=== PATIENT | female | born 1975 | race Caucasian/White ===

== ENCOUNTER 2022-05-17 11:10 | Emergency (ER) | payer MEDICAID, SELFPAY ==
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
[2022-05-17 11:43] VITALS: BP 143/92; PULSE 128; TEMP 36.6; O2SAT 100; BMI 18.4
--- NOTE | 2022-05-17 11:49 | CTR_ITS ---
PROCEDURE INFORMATION: Exam: CT Head Without Contrast Exam date and time: 05/17/2022 1:21 PM Age: 47 years old Clinical indication: Injury or trauma; Other: Seizure; Other: PT denies trauma TECHNIQUE: Imaging protocol: Computed tomography of the head without contrast. Axial, coronal and sagittal reformatted images were created and reviewed. Radiation optimization: All CT scans at this facility use at least one of these dose optimization techniques: automated exposure control; mA and/or kV adjustment per patient size (includes targeted exams where dose is matched to clinical indication); or iterative reconstruction. REPORTING DATA: Count of CT and Cardiac NM exams in prior 12 months: This patient has received 0 known CTs and 0 known cardiac nuclear medicine studies in the 12 months prior to the current study. COMPARISON: No relevant prior studies available. RADIATION DOSE METRICS: Total DLP (mGy-cm): 967.18 FINDINGS: Brain: No CT evidence of acute intracranial hemorrhage or acute territorial infarction. No significant mass effect or midline shift. Basal cisterns patent. Cerebral ventricles: Normal in size and configuration. Paranasal sinuses: Unremarkable. No fluid levels. Mastoid air cells: Grossly unremarkable. Bones/joints: No acute osseous abnormality. Soft tissues: Grossly unremarkable. CT/CT head wo con* [id number] IMPRESSION: No CT evidence of acute intracranial pathology.
--- NOTE | 2022-05-17 12:12 | ECG_ITS ---
[facility] Test Date: 2022-05-17 Pat Name: Yolanda Wray Department: Room: Gender: Female Radio Station Operator: : 1975 Requested By: Johnnie Do Order Number: [id number] Twin MD: Wilfred Lopez Measurements Intervals [place] Rate: 118 P: 146 NC: 134 QRS: 135 QRSD: 74 T: 122 QT: 304 QTc: 426 Interpretive Statements SINUS TACHYCARDIA ARM LEADS REVERSED [INVERTED P AND QRS IN I] ABNORMAL RHYTHM ECG No previous ECG available for comparison Electronically Signed On 05-17-2022 18:57:52 CDT by Wilfred Lopez [id number]
[2022-05-17] MEDS: sodium chloride 0.9% 1,000 ML 999 ML IV (12:16)
--- NOTE | 2022-05-17 12:18 | PC.PHAR ---
ext med history shows ambien 5mg hs prn filled 04/30/22 10d/s pt states she doesnt have this medication any more-
[2022-05-17 12:21] VITALS: BP 130/72; PULSE 123; RESP 16; O2SAT 100
[2022-05-17 12:30] LABS: Add Urine Microscopic? NO; Charge for UA Resulting for Rev
[2022-05-17 12:31] LABS: Basophils # 0.1 10^3/uL (0.0-0.1); Basophils % 0.5 %; Eosinophils % 0.1 %; Hematocrit 49.2 % (37.0-47.0); Hemoglobin 16.4 g/dL (11.5-15.3); Lymphocytes # 1.3 10^3/uL (0.8-4.8); Mean Corpuscular HGB Conc 33.3 g/dL (30.0-36.0); Mean Corpuscular Volume 89.9 fl (81-99); Mean Platelet Volume 11.3 fL (7.4-10.4); Monocytes # 0.5 10^3/uL (0.2-0.9); Monocytes % 4.9 %; Neutrophils # 9.04 10^3/uL (1.8-7.7); Neutrophils % 81.7 %; Nucleated Red Blood Cells % 0 %; Platelet Count 200 10^3/cmm (130-400); Red Blood Count 5.47 10^6/uL (4.1-5.3); Red Cell Distribution Width 12.4 % (12.1-15.1); White Blood Count 11.1 10^3/uL (4.0-10.0)
[2022-05-17 12:55] LABS: Bilirubin Urine Neg (Negative); Blood Urine Neg (Negative); Glucose Urine UA Norm (Normal); Ketones Urine Negative (Negative); Leukocyte Esterase Urine Negative (Negative); Nitrate Urine Negative (Negative); Protein Urine Neg (Negative); Specific Gravity, Urine 1.015 (1.005-1.030); Urine Appearance Clear (CLEAR); Urine Color Light yellow (Yellow); Urobilinogen Urine Norm (Negative); pH Urine 5 (5-7)
[2022-05-17 13:01] LABS: HCG, Serum Qual Negative (Negative)
[2022-05-17 13:17] LABS: Alanine Aminotransferase 17 U/L (0-33); Alkaline Phosphatase 74 U/L (35-105); Blood Urea Nitrogen 6 mg/dL (6-20); Calcium 9.4 mg/dL (8.5-10.5); Carbon Dioxide 20 mmol/L (22-29); Chloride 98 mmol/L (98-107); Creatinine Clr Calc Pharmacy 111.6594; Glomerular Filtration Rate 132.8 mL/min (90-130); Glucose 103 mg/dL (65-115); Osmolality Calculated 272 mOsm/kg (285-295); Sodium 132 mmol/L (136-145)
[2022-05-17 13:20] LABS: Acetaminophen < 5.0 ug/mL (10-30); Alcohol Level < 10 mg/dL (0-10); Aspartate Amino Transferase 32 U/L (0-32); Salicylate < 0.3 mg/dL (3-10)
[2022-05-17 13:55] VITALS: BP 116/87; PULSE 102; RESP 16; O2SAT 98
[2022-05-17] MEDS: acetaminophen 325 mg Tablet 650 MG PO (14:12)
[2022-05-17] MEDS: CLONazepam 1 mg Tablet PO (14:12)
[2022-05-17 14:15] VITALS: BP 116/87; PULSE 111; RESP 16; O2SAT 100
--- NOTE | 2022-05-18 11:20 | DCPLANNER ---
Addendum entered by Anastasia Sosa 05/29/22 15:01: manager of change received the following message from the neurology clinic regarding follow up appointment: pt returned call stating she did not want to be seen with neuro :) Addendum entered by Anastasia Sosa 05/22/22 08:23: Patient has a follow up appointment scheduled for Wednesday, July 01, 2022 at 11:[address] Casillas at neurology. Original Note: manager of change had message to schedule a follow up appointment for patient with neurology. manager of change sent patients information to the front office staff at neurology. Patients information will be printed and reviewed. Clinic will call patient with appointment information.
--- NOTE | 2022-05-27 10:08 | DCPLANNER ---
social media project manager called patient due to no primary care physician - no answer at this time
== END 2022-05-17 14:45 | disposition home or self-care (01) ==
PROVIDERS: Emergency Provider Emergency Medicine
DX: R56.9 Unspecified convulsions (principal); Z76.0 Encounter for issue of repeat prescription
CPT/HCPCS: 70450; 80053; 80307; 81003; 84443; 84703; 85025; 93005; 96360; 99285; J7030

== ENCOUNTER 2022-07-25 09:32 | Emergency (ER) | payer MEDICAID, SELFPAY ==
[2022-07-25 09:34] VITALS: BP 129/74; PULSE 117; RESP 20; O2SAT 96
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
--- NOTE | 2022-07-25 09:53 | ECG_ITS ---
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 Measurements Intervals [place] Rate: 95 P: 73 SD: 129 QRS: 74 QRSD: 84 T: 72 QT: 338 QTc: 425 Interpretive Statements SINUS RHYTHM WITH SINUS ARRHYTHMIA POSSIBLE LEFT ATRIAL ENLARGEMENT [-0.1mV P-WAVE IN V1/V2] Compared to ECG 05/17/2022 12:12:00 Sinus tachycardia no longer present Electronically Signed On 07-25-2022 14:50:06 CDT by Neisha Broussard M.D. [email or web address]
[2022-07-25 10:15] LABS: Basophils % 0.4 %; Eosinophils # 0.1 10^3/uL (0.0-0.8); Eosinophils % 0.7 %; Hematocrit 40.4 % (37.0-47.0); Hemoglobin 13.2 g/dL (11.5-15.3); Lymphocytes # 2.3 10^3/uL (0.8-4.8); Lymphocytes % 23.8 %; Mean Corpuscular HGB Conc 32.7 g/dL (30.0-36.0); Mean Corpuscular Hemoglobin 29.1 pg (28.0-34.0); Mean Platelet Volume 9.6 fL (7.4-10.4); Monocytes # 0.4 10^3/uL (0.2-0.9); Monocytes % 3.7 %; Neutrophils # 6.91 10^3/uL (1.8-7.7); Neutrophils % 71.1 %; Nucleated Red Blood Cells % 0 %; Platelet Count 339 10^3/cmm (130-400); Red Blood Count 4.54 10^6/uL (4.1-5.3); Red Cell Distribution Width 12.4 % (12.1-15.1); White Blood Count 9.7 10^3/uL (4.0-10.0)
[2022-07-25 10:31] LABS: Alanine Aminotransferase 13 U/L (0-33); Albumin Level 4.7 g/dL (3.5-5.2); Alcohol Level 74 mg/dL (0-10); Alkaline Phosphatase 77 U/L (35-105); Blood Urea Nitrogen 11 mg/dL (6-20); Calcium 9.4 mg/dL (8.5-10.5); Carbon Dioxide 23 mmol/L (22-29); Chloride 102 mmol/L (98-107); Globulin 2.9 g/dL (1.3-4.6); Glomerular Filtration Rate 171.8 mL/min (90-130); Glucose 75 mg/dL (65-115); Osmolality Calculated 282 mOsm/kg (285-295); Sodium 137 mmol/L (136-145); Total Bilirubin 0.4 mg/dL (0.15-1.2); Total Protein 7.6 g/dL (6.6-8.7)
[2022-07-25 10:45] LABS: Acetaminophen < 5.0 ug/mL (10-30); Salicylate < 0.3 mg/dL (3-10)
[2022-07-25 10:46] LABS: Anion Gap 16.4 (5-19); Aspartate Amino Transferase 23 U/L (0-32); Potassium 4.4 mmol/L (3.5-5.1)
[2022-07-25] MEDS: LORazepam 2 mg Tablet PO (10:49)
[2022-07-25 11:54] VITALS: BP 135/91; PULSE 108; RESP 16; O2SAT 99
--- NOTE | 2022-07-27 09:07 | DCPLANNER ---
Addendum entered by Anastasia Sosa 07/30/22 10:17: city maintenance manager received the following message from Kayla at [facility] regarding referral to [facility]. Attempted contact on 07/27/22 and 07/30/22. Left a voicemail with contact info. Original Note: city maintenance manager had message to schedule a follow up appointment for patient with C. city maintenance manager sent patients to the scheduling staff at [facility] and to Kayla Acevedo emergency medical service coordinator. Patients information will be printed and reviewed. Clinic will call patient with appointment information.
== END 2022-07-25 11:57 | disposition home or self-care (01) ==
PROVIDERS: Emergency Provider Family Medicine; PCP Family Medicine
DX: F41.9 Anxiety disorder, unspecified (principal)
CPT/HCPCS: 36415; 80053; 80307; 85025; 93005; 99284

== ENCOUNTER 2023-07-07 22:07 | Emergency (ER) | payer SELFPAY ==
[2023-07-07 22:14] VITALS: BP 112/58; PULSE 83; RESP 14; TEMP 36.6; O2SAT 97
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
== END 2023-07-07 23:16 | disposition home or self-care (01) ==
PROVIDERS: Emergency Provider Nurse Practitioner Family; PCP Family Medicine
DX: S63.657A Sprain of metacarpophalangeal joint of left little finger, initial encounter (principal); S02.32XA Fracture of orbital floor, left side, initial encounter for closed fracture; Y04.2XXA Assault by strike against or bumped into by another person, initial encounter
CPT/HCPCS: 70480; 73130; 99284

== ENCOUNTER 2024-01-22 16:36 | Emergency (ER) | payer MEDICAID, SELFPAY ==
[2024-01-22 16:43] VITALS: BP 131/82; PULSE 120; RESP 16; TEMP 36.9; O2SAT 99
--- NOTE | 2024-01-22 17:00 | W.ED.GENADLT ---
HPI - General Adult General: Chief complaint: General Medical Stated complaint: withdrawl Time Seen by Provider: 01/22/24 16:55 Source: patient Mode of arrival: ambulatory Limitations: no limitations History of Present Illness: 49-year-old female states that she was unable to fill her prescription for Klonopin out and states has been having some anxiety. She denies any SI HI she denies any vomiting or diarrhea she is well-appearing here she states she has been drinking some alcohol today. Associated symptoms: Deny chest pain, dyspnea, headache(s), nausea, rash or vomiting Related Data Home Medications Medication Instructions Recorded Confirmed ibuprofen 800 mg tablet 800 mg PO TID PRN Pain 05/17/22 07/25/22 buspirone 15 mg tablet 15 mg PO BID 07/25/22 09/11/22 cephalexin 250 mg capsule 750 mg PO BID 07/25/22 07/25/22 Previous Rx's Medication Instructions Recorded clonazepam 0.5 mg tablet 0.5 mg PO DAILY #5 tabs 07/25/22 clonazepam 0.5 mg tablet 0.5 mg PO DAILY #14 tabs 01/22/24 Allergies Allergy/AdvReac Type Severity Reaction Status Date / Time amitriptyline Allergy ADR-Numbnes Verified 01/20/24 10:55 s morphine Allergy ADR-Vomitin Verified 01/20/24 10:55 g Review of Systems Const: Denies: fever(s), chills, body aches or change in appetite ENMT: Denies: throat pain or dental pain Card: Denies: chest pain Resp: Denies: dyspnea GI: Denies: abdominal pain, nausea, vomiting or diarrhea Musc: Denies: neck pain or back pain Skin/Breast: Denies: rash Neuro: Denies: headache(s) Psych: Reports: anxiety PFSH ED PFSH: Medical History Anxiety Seizure Social History Substance/Drug Use: current Physical Exam Const: COMMON NORMALS: no acute distress, patient oriented x3 and healthy appearing HENMT: COMMON NORMALS: normocephalic and atraumatic HEAD & SCALP: normocephalic and atraumatic Eye: COMMON NORMALS: conjunctivae normal CONJUNCTIVA: Yes conjunctivae normal Neck/C-Spine: COMMON NORMALS: full ROM and supple Chest: COMMONS NORMALS: normal inspection of the chest Resp: COMMON NORMALS: normal respiratory effort Extremity: COMMON NORMALS: normal to inspection and full ROM Neuro: COMMON NORMALS: patient oriented x3, moves all extremities and no focal motor deficits Psych: COMMON NORMALS: mental status grossly normal, Normal thought process present and cooperative THOUGHT PROCESS: Normal thought process present Skin: COMMON NORMALS: no rashes or lesions noted and no wounds GENERAL SKIN EXAM: no rashes or lesions noted Course Vital Signs: Vital signs: Vital Signs Temperature 98.4 F 01/22/24 16:43 Pulse Rate 120 H 01/22/24 16:43 Respiratory Rate 16 01/22/24 16:43 Blood Pressure 131/82 01/22/24 16:43 Pulse Oximetry 99 01/22/24 16:43 Oxygen Delivery Me thod Room Air 01/22/24 16:43 MDM - General Adult Medical Decision Making Patient presents here with anxiety wanting a refill for Klonopin I informed her I can give her 1 weeks worth of her Klonopin will not be able to refill it again she has to follow-up with her PCP she understands agrees to plan. She is not suicidal or homicidal. Medical Records I reviewed the patient's medical records. No radiology studies performed this visit Discharge Plan Discharge Patient Disposition: Home Clinical Impression: Anxiety Condition: Stable Prescriptions: Continued clonazepam 0.5 mg tablet 0.5 mg PO DAILY Qty: 14 0RF No Action ibuprofen 800 mg tablet 800 mg PO TID PRN (Reason: Pain) cephalexin 250 mg capsule 750 mg PO BID buspirone 15 mg tablet 15 mg PO BID clonazepam 0.5 mg tablet 0.5 mg PO DAILY Qty: 5 0RF Discharge Orders: Discharge ED (Routine); Ordered 01/22/24 Ordered By: Claribel Gipson Referrals: Beau Rai MD [Primary Care Provider] - 4-7 days Discharge Diet: Advance as tolerated Discharge Activity: Resume usual activity Patient Instructions: Anxiety (ED) Coding Level of Care Code ED Windshield Installer for Mary Musa
== END 2024-01-22 17:26 | disposition home or self-care (01) ==
PROVIDERS: Emergency Provider Emergency Medicine; PCP Family Medicine
DX: F41.9 Anxiety disorder, unspecified (principal)
CPT/HCPCS: 99281

== ENCOUNTER 2024-03-02 16:33 | Emergency (ER) | payer MEDICAID, SELFPAY ==
[2024-03-02 16:38] VITALS: BP 122/87; PULSE 111; RESP 18; TEMP 36.6; O2SAT 97; BMI 19.5
--- NOTE | 2024-03-02 16:47 | XRR_ITS ---
PROCEDURE INFORMATION: Exam: XR Chest Exam date and time: 03/02/2024 4:52 PM Age: 49 years old Clinical indication: Cough; Additional info: Congestion/productive cough TECHNIQUE: Imaging protocol: Radiologic exam of the chest. Views: 1 view. COMPARISON: No relevant prior studies available. FINDINGS: Lungs: Unremarkable. No consolidation. Pleural spaces: Unremarkable. No pleural effusion. No pneumothorax. Heart/Mediastinum: Unremarkable. No cardiomegaly. Bones/joints: Unremarkable. XR/XR chest 1V portable [id number] IMPRESSION: No acute findings.
--- NOTE | 2024-03-02 16:48 | W.ED.URI ---
HPI - URI/Sore Throat General: Chief Complaint: Upper Respiratory Infection Stated Complaint: conjestion Time Seen by Provider: 03/02/24 16:41 Source: patient Mode of arrival: ambulatory Limitations: no limitations History of Present Illness: Patient is a 49-year-old female presents to ED today with complaint of chest congestion and a productive cough over the past 2 to 3 weeks. Patient states she lives in the [facility] and several of the other residents have been ill. She is an everyday smoker. She states she is coughing up yellow to green phlegm. She has some ear pain/pressure. She has not ran any fevers. She is not complaining of chest pain, hemoptysis, orthopnea, PND, leg swelling/weight gain, no recent surgeries, no risk factors for PE. She arrives tachycardic. Looking at previous documentation of vital signs, this has been present since back in May 2022 which is as far back as a goes. Patient states she is chronically anxious. MD elicited complaint: cough Onset (ago): week(s) Consistency: constant Severity: moderate Description of mucous: yellow and green Able to tolerate fluids by mouth: Yes Exacerbating factors: nothing Relieving factors: nothing Context: sick contacts Associated symptoms: Reports ear or mastoid pain; Deny abdominal pain, chills, chest pain, diarrhea, fever(s), headache(s), nasal congestion, nausea, sinus pain or vomiting Treatments prior to arrival: none Related Data Home Medications Medication Instructions Recorded Confirmed ibuprofen 800 mg tablet 800 mg PO TID PRN Pain 05/17/22 07/25/22 buspirone 15 mg tablet 15 mg PO BID 07/25/22 09/11/22 Previous Rx's Medication Instructions Recorded clonazepam 0.5 mg tablet 0.5 mg PO DAILY #5 tabs 07/25/22 clonazepam 0.5 mg tablet 0.5 mg PO DAILY #14 tabs 01/22/24 amoxicillin 875 mg-potassium 1 tab PO BID #14 tabs 03/02/24 clavulanate 125 mg tablet azithromycin 250 mg tablet See Rx Instructions PO .COMPLEX #6 03/02/24 tabs Allergies Allergy/AdvReac Type Severity Reaction Status Date / Time amitriptyline Allergy ADR-Numbnes Verified 01/20/24 10:55 s morphine Allergy ADR-Vomitin Verified 12/05/24 10:55 g Review of Systems Const: Denies: fever(s), chills, body aches, fatigue or malaise Eyes: Denies: change in vision, blurry vision, photophobia, eye discomfort or eye discharge ENMT: Reports: ear or mastoid pain; Denies: throat pain, enlarged tonsils, odynophagia, swelling of lips/tongue, oral sores, ear discharge, nasal discharge, nasal congestion, post nasal drip or sinus pain Card: Denies: chest pain, palpitations, irregular heart rhythm, edema, swelling of feet/ankles, lightheadedness, syncope, pre-syncope, dyspnea on exertion, orthopnea, leg pain with exertion or acrocyanosis Resp: Reports: productive cough, change in phlegm color and chest congestion; Denies: dyspnea, non-productive cough, wheezing, stridor, pain on inspiration or hemoptysis GI: Denies: abdominal pain, nausea, vomiting or diarrhea Musc: Denies: neck pain, back pain, extremity pain, joint pain or joint swelling Skin/Breast: Denies: rash Neuro: Denies: headache(s) or dizziness All/Imm: Denies: facial swelling or seasonal rhinorrhea PFSH ED PFSH: Medical History Psychiatric care Anxiety Seizure Social History Substance/Drug Use: current Physical Exam Const: COMMON NORMALS: no acute distress, average body habitus, patient oriented x3, no limitations, healthy appearing, alert and well nourished GENERAL APPEARANCE: cooperative ORIENTATION/CONSCIOUSNESS: Yes awake, Yes oriented to person, Yes oriented to place and Yes oriented to time HENMT: COMMON NORMALS: normocephalic, atraumatic, hearing grossly normal bilaterally, external ears normal, EAC's normal, TM's normal bilaterally, Normal external nose present, Normal nasal mucous membranes and turbinates present, moist oral mucous membranes and oropharynx normal HEAD & SCALP: normal to inspection, normocephalic and atraumatic FACE & SINUS: normal facial exam and sinuses nontender NOSE: Normal external nose present and Normal nasal mucous membranes and turbinates present EXTERNAL EAR: Yes external ears normal EXTERNAL AUDITORY CANAL: EAC's normal TYMPANIC MEMBRANE: TM's normal bilaterally MOUTH: Normal oral and palatal mucosa present and lip normal THROAT: posterior oropharynx normal, tonsils normal and uvula midline Eye: COMMON NORMALS: Equal, round and reactive pupils present, EOMs intact bilaterally and conjunctivae normal CONJUNCTIVA: Yes conjunctivae normal PUPIL: Yes Equal, round and reactive pupils present Neck/C-Spine: COMMON NORMALS: no lymphadenopathy Resp: COMMON NORMALS: normal respiratory effort and clear to auscultation bilaterally AUSCULTATION: clear to auscultation bilaterally Cardio: COMMON NORMALS: regular rhythm RATE: tachycardic RHYTHM: regular rhythm Extremity: COMMON NORMALS: no clubbing, cyanosis or edema, no calf tenderness and no pedal edema GENERAL: Yes normal exam except as noted Neuro: COMMON NORMALS: patient oriented x3 SENSORIUM/ORIENTATION: Yes alert, Yes oriented to person, Yes oriented to place and Yes oriented to time Skin: COMMON NORMALS: no rashes or lesions noted GENERAL SKIN EXAM: no rashes or lesions noted Course Vital Signs: Vital signs: Vital Signs Temperature 97.9 F 03/02/24 16:38 Pulse Rate 111 H 03/02/24 16:38 Respiratory Rate 18 03/02/24 16:38 Blood Pressure 122/87 03/02/24 16:38 Pulse Oximetry 97 03/02/24 16:38 Oxygen Delivery Me thod Room Air 03/02/24 16:38 MDM - URI/Sore Throat Medical Decision Making Patient here with a productive cough over the past 3 weeks. She clinically appears in no acute distress. Her tachycardia seems chronic when comparing to previous vital signs. CXR somewhat difficult to interpret as she has very dense breast tissue. She does seem to have some peribronchial cuffing present and possible right hilar pneumonia-personal interpretation. Will cover for atypical and typical bugs with augmentin/azithromycin. Return precautions discussed. Otherwise she can follow-up with her primary care provider. Differential Diagnosis Likely upper respiratory infection, viral infection and bronchitis Medical Records I reviewed the patient's medical records. Lab Data Radiology Impressions Chest X-Ray 03/02/24 16:47 IMPRESSION: No acute findings. XR interpretation done by ED provider, pending radiology final review Discharge Plan Discharge Patient Disposition: Home Clinical Impression: Pneumonia Qualifiers: Pneumonia type: due to unspecified organism Laterality: unspecified laterality Lung location: unspecified part of lung Qualified Code(s): J18.9 - Pneumonia, unspecified organism Condition: Stable Prescriptions: New azithromycin 250 mg tablet See Rx Instructions .ROUTE .COMPLEX Qty: 6 0RF Rx Instructions: take 500 mg today (day 1), then 250 mg for 4 days (days 2-5) amoxicillin-pot clavulanate 875-125 mg tablet 1 tab PO BID Qty: 14 0RF Discontinued cephalexin 250 mg capsule 750 mg PO BID No Action ibuprofen 800 mg tablet 800 mg PO TID PRN (Reason: Pain) buspirone 15 mg tablet 15 mg PO BID clonazepam 0.5 mg tablet 0.5 mg PO DAILY Qty: 5 0RF clonazepam 0.5 mg tablet 0.5 mg PO DAILY Qty: 14 0RF Discharge Orders: Discharge ED (Routine); Ordered 03/02/24 Ordered By: Khloe Duvall Referrals: Beau Rai MD [Primary Care Provider] - Patient Instructions: Bacterial Pneumonia (DC), Pneumonia (ED) Activity Restrictions/Additional Instructions: As we discussed, please follow-up with your primary care provider in a week or so if symptoms do not seem to be improving. You need to return to the emergency department for significant shortness of breath, difficulty breathing, chest pain, generally feeling worse or unwell, or any other concerns you may have. I hope you begin to feel better soon. Coding Level of Care Code ED Field Map Editor for Mary Musa
[2024-03-02 17:24] VITALS: BP 115/52; PULSE 118; O2SAT 98
== END 2024-03-02 17:28 | disposition home or self-care (01) ==
PROVIDERS: Emergency Provider Physician Assistant; PCP Family Medicine
DX: J18.9 Pneumonia, unspecified organism (principal)
CPT/HCPCS: 71045; 99283

== ENCOUNTER → 2024-05-10 12:04 | Outpatient (BNVA) | payer OTHER, SELFPAY | PROVIDERS: PCP Family Medicine; Visit Provider Psychiatry & Neurology Psychiatry | DX: F41.1 Generalized anxiety disorder (principal); F10.139 Alcohol abuse with withdrawal, unspecified; Z79.899 Other long term (current) drug therapy | CPT/HCPCS: 80061; 83036 ==

== ENCOUNTER 2024-05-20 12:56 | Emergency (ER) | payer MEDICAID, SELFPAY ==
[2024-05-11 11:34] VITALS: BP 139/75; BMI 19.2
[2024-05-20 13:02] VITALS: BP 114/77; PULSE 113; RESP 16; TEMP 36.5; O2SAT 98; BMI 19.1
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
[2024-05-20 13:52] VITALS: BP 121/86; PULSE 109; O2SAT 96
== END 2024-05-20 13:53 | disposition home or self-care (01) ==
PROVIDERS: Emergency Provider Nurse Practitioner; PCP Family Medicine
DX: F41.9 Anxiety disorder, unspecified (principal); F17.210 Nicotine dependence, cigarettes, uncomplicated
CPT/HCPCS: 99283

== ENCOUNTER 2024-08-30 02:33 | Emergency (ER) | payer MEDICAID, SELFPAY ==
[2024-05-11 11:34] VITALS: BP 139/75; BMI 19.2
[2024-08-30 02:36] VITALS: BP 114/83; PULSE 106; RESP 17; TEMP 36.4; O2SAT 97; BMI 19.1
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
[2024-08-30 02:49] LABS: Hematocrit 40.4 % (36-47); Hemoglobin 13.30 g/dL (11.27-16.99); Mean Corpuscular HGB Conc 32.9 g/dL (30-55); Mean Corpuscular Hemoglobin 29.0 pg (27-33); Mean Corpuscular Volume 88.2 fl (85-98); Nucleated Red Blood Cells % 0 %; Platelet Count 317 10^3/cmm (157-399); Red Blood Count 4.58 10^6/uL (3.85-5.65); White Blood Count 7.92 10^3/uL (3.29-11.43)
[2024-08-30 03:03] LABS: Alanine Aminotransferase 13 U/L (0-33); Albumin Level 4.7 g/dL (3.5-5.2); Alkaline Phosphatase 83 U/L (35-105); Anion Gap 17.8 (5-19); Aspartate Amino Transferase 21 U/L (0-32); Blood Urea Nitrogen 18 mg/dL (6-20); Calcium 10.1 mg/dL (8.5-10.5); Carbon Dioxide 22 mmol/L (22-29); Chloride 102 mmol/L (98-107); Globulin 3.4 g/dL (1.3-4.6); Glucose 89 mg/dL (65-115); Osmolality Calculated 287 mOsm/kg (285-295); Potassium 3.8 mmol/L (3.5-5.1); Sodium 138 mmol/L (136-145); Total Protein 8.1 g/dL (6.6-8.7)
[2024-08-30] MEDS: LORazepam 1 MG/0.5 ML injection IVP (03:08)
--- NOTE | 2024-08-30 03:38 | ED_ITS ---
HPI - Seizure 2 General: Chief Complaint: Seizure Stated Complaint: MHE Time Seen by Provider: 08/30/24 02:35 History of Present Illness: HPI Narrative: Patient is a well-appearing 49-year-old female who has a stated history ofsodes possibly related to benzodiazepine/alcohol withdrawal. She was picked up at [facility] (resides at [facility]) after noting a sudden metallic/strange taste ?aura,? feeling ?elevated,? anxious, tired, and mildly nauseated with excess saliva. She denies current substance use and states she has abstained from alcohol ?for a while? and is not on chronic antiepileptic therapy. No recent medication changes or unusual foods. She denies chest pain and denies true shortness of breath, though she feels she may be breathing faster than usual. No vomiting yet. A stressful ?situation? may be a trigger. She has previously received IV medication (e.g., Ativan) during similar events and would like a rescue option. No neurologist follow-up recently but she is open to referral. Seizure History: Yes Related Data Allergies Allergy/AdvReac Type Severity Reaction Status Date / Time albuterol Allergy Severe ALGY-Anaphy Verified 08/30/24 03:13 laxis amitriptyline Allergy ADR-Numbnes Verified 08/30/24 03:13 s morphine Allergy ADR-Vomitin Verified 08/30/24 03:13 g PFSH ED 2 PFSH: Medical History (Updated 08/30/24 @ 04:13 by Justice Mendoza MD) Alcohol dependence Insomnia Neuropathy Psychiatric care Anxiety Seizure From benzo and Etoh withdrawal Surgical History Hx of tonsillectomy Family History Other Diabetes mellitus, type 2 Heart disease Social History Smoking and tobacco/nicotine status: current every day tobacco/nicotine user cigarettes Packs smoked per day: 0.5 Years cigarettes smoked: 29 Quit status (tobacco/nicotine): not considering quitting Second hand smoke exposure: No Alcohol intake: current Alcohol intake frequency: 0-2 Drinks per Day Alcohol type: hard liquor Substance/Drug Use: current Substance/Drug use frequency: few times a week Adopted: No Caregiver/support person: No Household members: none Housing: Apartment Marital status: Number of children: 2 Number of grandchildren: 0 Highest education level completed: Associate Degree: Occupational, Technical, Vocational Program Education level details: [facility] service: No Current occupational status: unemployed Pets and animals: Yes Pets & animals: cat(s) and dog(s) Leisure activites: exercise and other Leisure activities details: outdoors Sexually active: No Do you think of yourself as: Straight/Heterosexual Current gender identity: Female Jia/Religious: Presbyterian Special jia needs: No Agree to transfusion: Yes Female Reproductive History: Para: 2 Physical Exam 2 Const: COMMON NORMALS: no acute distress, patient oriented x3 and alert HENMT: COMMON NORMALS: normocephalic and atraumatic HEAD & SCALP: n ormocephalic and atraumatic Eye: COMMON NORMALS: Equal, round and reactive pupils present, EOMs intact bilaterally and no scleral icterus PUPIL: Yes Equal, round and reactive pupils present Resp: COMMON NORMALS: normal respiratory effort and No retractions Cardio: OTHER: Tachycardic, regular rhythm GI: COMMON NORMALS: Normal to inspection, nondistended, normoactive bowel sounds present, Soft to palpation and non-tender PALPATION: Yes Soft to palpation Neuro: COMMON NORMALS: patient oriented x3 SENSORIUM/ORIENTATION: Yes alert Psych: OTHER: Anxious, no SI or HI. No hallucinations. Skin: COMMON NORMALS: no rashes or lesions noted GENERAL SKIN EXAM: no rashes or lesions noted Course 2 Vital Signs: Vital signs: Vital Signs Temperature 97.6 F 08/30/24 02:36 Pulse Rate 106 H 08/30/24 02:36 Respiratory Rate 17 08/30/24 02:36 Blood Pressure 114/83 08/30/24 02:36 Pulse Oximetry 97 08/30/24 02:36 Oxygen Delivery Me thod Room Air 08/30/24 02:36 MDM - Seizure MDM Narrative Medical decision making narrative: In summary, patient is an anxious appearing 41-year-old female seen for a constellation of symptoms which she felt may precede a seizure. She admits that she has had seizures in the past when she was going through alcohol and benzodiazepine withdrawal. She notes the feeling of increased salivation and mild nausea. After receiving IV fluids and Ativan she feels much better. EKG shows nothing acute. She does not take antiepileptic medications thus I do not feel she likely carries the diagnosis of epilepsy nor do I feel she requires any further workup at this time and she will be discharged in stable and improved condition Lab Data 08/30/24 02:45 08/30/24 02:45 Labs: Laboratory Results WBC 7.92 10^3/uL (3.29-11.43) 08/30/24 02:45 RBC 4.58 10^6/uL (3.85-5.65) 08/30/24 02:45 Hgb 13.30 g/dL (11.27-16.99) 08/30/24 02:45 Hct 40.4 % (36-47) 08/30/24 02:45 MCV 88.2 fl (85-98) 08/30/24 02:45 MCH 29.0 pg (27-33) 08/30/24 02:45 MCHC 32.9 g/dL (30-55) 08/30/24 02:45 RDW 12.7 % (12.1-15.1) 08/30/24 02:45 Plt Count 317 10^3/cmm (157-399) 08/30/24 02:45 MPV 10.0 fL (7.4-10.4) 08/30/24 02:45 Neut % (Auto) 52.1 % 08/30/24 02:45 Lymph % (Auto) 34.2 % 08/30/24 02:45 [place] % (Auto) 11.4 % 08/30/24 02:45 Eos % (Auto) 1.4 % 08/30/24 02:45 Baso % (Auto) 0.8 % 08/30/24 02:45 Neut # (Auto) 4.13 10^3/uL (1.8-7.7) 08/30/24 02:45 Lymph # (Auto) 2.7 10^3/uL (0.8-4.8) 08/30/24 02:45 [place] # (Auto) 0.9 10^3/uL (0.2-0.9) 08/30/24 02:45 Eos # (Auto) 0.1 10^3/uL (0.0-0.8) 08/30/24 02:45 Baso # (Auto) 0.1 10^3/uL (0.0-0.1) 08/30/24 02:45 Nucleated RBC % (auto) 0 % 08/30/24 02:45 Nucleated RBCs # 0.0 /100WBC 08/30/24 02:45 Sodium 138 mmol/L (136-145) 08/30/24 02:45 Potassium 3.8 mmol/L (3.5-5.1) 08/30/24 02:45 Chloride 102 mmol/L (98-107) 08/30/24 02:45 Carbon Dioxide 22 mmol/L (22-29) 08/30/24 02:45 Anion Gap 17.8 (5-19) 08/30/24 02:45 BUN 18 mg/dL (6-20) 08/30/24 02:45 Creatinine 0.7 mg/dL (0.5-0.9) 08/30/24 02:45 GFR Calculation 89.3 mL/min (90-130) L 08/30/24 02:45 Glucose 89 mg/dL (65-115) 08/30/24 02:45 Calculated Osmolality 287 mOsm/kg (285-295) 08/30/24 02:45 Calcium 10.1 mg/dL (8.5-10.5) 08/30/24 02:45 Total Bilirubin 1.5 mg/dL (0.15-1.2) H 08/30/24 02:45 AST 21 U/L (0-32) 08/30/24 02:45 ALT 13 U/L (0-33) 08/30/24 02:45 Alkaline Phosphatase 83 U/L (35-105) 08/30/24 02:45 Total Protein 8.1 g/dL (6.6-8.7) 08/30/24 02:45 Albumin 4.7 g/dL (3.5-5.2) 08/30/24 02:45 Globulin 3.4 g/dL (1.3-4.6) 08/30/24 02:45 No radiology studies performed this visit EKG Data EKG 1: Interpretation: Time?0341?sinus rhythm, rate of 69, no ST segment elevation or depression, no T wave inversions, intervals within normal limits. QTc = 402 Discharge Plan Discharge Patient Disposition: Home Clinical Impression: Suspected condition not found Condition: Stable Discharge Orders: Discharge ED (Routine); Ordered 08/30/24 Ordered By: Justice Mendoza Referrals: Lisset Ayers DO [Primary Care Provider, Family Practice] Discharge Diet: Usual diet Discharge Activity: Increase activity as tolerated Patient Instructions: Patient Portal & Alexander Instructions Activity Restrictions/Additional Instructions: Your vital signs are stable and you have had no seizure activity. Please follow-up with your primary care physician for your future healthcare needs. Print Language: Panamanian Coding Level of Care Code ED Business Strategy Manager for Mary Musa
--- NOTE | 2024-08-30 03:41 | ECG_ITS ---
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 Measurements Intervals Jermyn Rate: 69 P: 67 OH: 132 QRS: 74 QRSD: 78 T: 77 QT: 384 QTc: 411 Interpretive Statements SINUS RHYTHM Compared to ECG 07/25/2022 09:53:00 Sinus arrhythmia no longer present Electronically Signed On 08-30-2024 16:45:04 CDT by Xi Reza M.D. [email or web address]
[2024-08-30 05:34] VITALS: BP 113/69; PULSE 76; RESP 16; O2SAT 96
== END 2024-08-30 05:34 | disposition home or self-care (01) ==
PROVIDERS: Emergency Provider Student in an Organized Health Care Education/Training Program; PCP Family Medicine
DX: Z03.89 Encounter for observation for other suspected diseases and conditions ruled out (principal); F17.210 Nicotine dependence, cigarettes, uncomplicated
CPT/HCPCS: 80053; 85025; 93005; 96374; 99284; J2060; J7030

== ENCOUNTER 2024-11-30 16:33 | Emergency (ER) | payer MEDICAID, SELFPAY ==
[2024-05-11 11:34] VITALS: BP 139/75; BMI 19.2
[2024-11-30 16:35] VITALS: BP 117/81; PULSE 96; RESP 16; TEMP 36.8; O2SAT 95; BMI 19.1
[2024-11-30 16:50] VITALS: BP 117/68; PULSE 93; O2SAT 94
[2024-11-30 17:06] LABS: Hematocrit 41.8 % (36-47); Hemoglobin 13.80 g/dL (11.27-16.99); Mean Corpuscular HGB Conc 33.0 g/dL (30-55); Mean Corpuscular Hemoglobin 28.9 pg (27-33); Mean Corpuscular Volume 87.6 fl (85-98); Nucleated Red Blood Cells % 0 %; Platelet Count 258 10^3/cmm (157-399); Red Blood Count 4.77 10^6/uL (3.85-5.65); White Blood Count 6.04 10^3/uL (3.29-11.43)
--- OUTSIDE RECORDS SUMMARY | 2024-11-30 17:15 | XMS_ITS | Data Portability ---
Author Organization [facility] Address [address] [address] Care Team Providers Care Geodetic Technician Name Role Phone KENNEDY RAI Primary Care [...] Lab CMP, serum or plasma 2023 024 [employer] [facility], [address] [place] [address], [address] [place], [address], 4 07:09:14 lipid panel, blood 2023 024 [employer] [facility], [address] [place] [address] 248, [address] [place], [address], 4 08:08:51 TSH, serum or plasma 2023 024 [employer] [facility], [address] [place] [address] 248, [address] [place], [address], 4 05:01:52 CBC 2023 [facility], [address] [address], [address] [place], [address], 4 08:08:51 Referral None recorded. Procedures None recorded. Surgeries None recorded. Imaging None recorded. Medication Orders Diflucan 150 mg tablet 2023 024 [facility], [address], [place], [place], [id number], 4 13:02:09 metronidazo le 500 mg tablet 2023 024 [facility] #29890, [address], [place], [place], [id number], 4 13:02:17 Tubersol 5 tub. unit/0.1 mL intradermal injection solution 2023 024 [facility] Not available 12:45:44 amoxicillin 500 mg tablet 2023 024 [facility] #16216, [address], [place], [place], [id number], 4 12:33:52 clonazepam 1 mg tablet 2023 024 [facility], [address], [place], [place], [id number], 4 12:27:06 gabapentin 100 mg capsule 2023 024 [facility]139, [address], [place], [place], [id number], 4 12:37:56 Wellbutrin XL 150 mg 24 hr tablet, extended release 2022 023 [facility] #36537, [address], [place], [place], [id number], 4 11:45:56 clonazepam 1 mg tablet 2022 023 [facility] #17549, [address], [place], [place], [id number], 3 11:19:59 Patient TargetsNo targets recorded. Patient InstructionsNo instructions recorded. Reason for Referral None Reported. Results Created Date Observation Date Name Description Value Unit Range Abnormal Flag Note LastModifiedBy Organization Detail LastModifiedTime 05/21/19 24 05/22/2023 LIPID PANEL , STAND ALEA cholesterol, total 225 mg/dL <200 high Not Available [address] [address] [place], [address], 05/22/2023 07:21:04 05/21/19 24 05/22/2023 LIPID PANEL , STAND ALEA HDL cholesterol 68 mg/dL > or = 50 normal Not Available [facility] [address] [address] [place], [address], 05/22/2023 07:21:04 05/21/19 24 05/22/2023 LIPID PANEL , STAND ALEA triglyceride s 96 mg/dL <150 normal Not Available [facility] [address] [address] [place], [address], 05/22/2023 07:21:04 05/21/19 24 05/22/2023 LIPID PANEL [...] n SS et al. PARTHA. 2013; 310(1 4): 2061- 2068 (http ://ed ucati on.Minggl saraKarmYog Media. MarkLogic/f aq/FA Q164) Not Available [facility] [address] [address] [address], [place], [address], 05/22/2023 07:21:04 05/21/19 24 05/22/2023 LIPID PANEL , STAND ALEA chol/HDLC ratio 3.3 (calc ) <5.0 normal Not Available [facility] [address] [address] [place], [address], 05/22/2023 07:21:04 05/21/19 24 05/22/2023 LIPID PANEL , STAND ALEA non HDL cholesterol 157 mg/dL _(aristeo c) <130 high For patie nts with diabe juan plus 1 major ASCVD risk facto r, treat ing to a non-H DL-C goal of <100 mg/dL (LDL- C of <70 mg/dL ) is consi dered a thera peelvin c optio n. Not Available [facility] [address] [address] [place], [address], 05/22/2023 07:21:04 05/21/1905/22/2023 COMPR EHENS SAVANNA METAB OLIC PANEL glucose 131 mg/dL 65-99 high Fasti ng refer ence inter halie For someo ne witho ut known diabe juan, a gluco se value >125 mg/dL indic ates that they may have diabe juan and this shoul d be confi rmed with a follo w-up test. Not Available [facility] [address] [address] [place], [address], 05/22/2023 07:21:05 05/21/19 24 05/22/2023 COMPR EHENS SAVANNA METAB OLIC PANEL urea nitrogen (BUN) 11 mg/dL 7-25 normal Not Available [facility] [address] [address] [place], [address], 05/22/2023 07:21:05 05/21/19 24 05/22/2023 COMPR EHENS SAVANNA METAB OLIC PANEL creatinine 0.75 mg/dL 0.50-0 .99 normal Not Available [address], [address], 05/22/2023 07:21:05 05/21/19 24 05/22/2023 COMPR EHENS SAVANNA METAB OLIC PANEL eGFR 99 mL/mi n/1.7 3m2 > or = 60 normal Not Available [address], [address], 05/22/2023 07:21:05 05/21/19 24 05/22/2023 COMPR EHENS SAVANNA METAB OLIC PANEL BUN/creatini ne ratio SEE NOTE: (calc ) 6-22 Not Repor mu: BUN and Creat inine are withi n refer ence range . Not Available [address], [address], 05/22/2023 07:21:05 05/21/19 24 05/22/2023 COMPR EHENS SAVANNA METAB OLIC PANEL sodium 137 mmol/ L 135-14 6 normal Not Available [address], [address], 05/22/2023 07:21:05 05/21/19 24 05/22/2023 COMPR EHENS SAVANNA METAB OLIC PANEL potassium 4.7 mmol/ L 3.5-5. 3 normal Not Available [address], [address], 05/22/2023 07:21:05 05/21/19 24 05/22/2023 COMPR EHENS SAVANNA METAB OLIC PANEL chloride 99 mmol/ L 98-110 normal Not Available [address], [address], 05/22/2023 07:21:05 05/21/19 24 05/22/2023 COMPR EHENS SAVANNA METAB OLIC PANEL carbon dioxide 28 mmol/ L 20-32 normal Not Available [address], [address], 05/22/2023 07:21:05 05/21/19 24 05/22/2023 COMPR EHENS SAVANNA METAB OLIC PANEL calcium 9.8 mg/dL 8.6-10 .2 normal Not Available [address], [address], 05/22/2023 07:21:05 05/21/19 24 05/22/2023 COMPR EHENS SAVANNA METAB OLIC PANEL protein, total 7.9 g/dL 6.1-8. 1 normal Not Available [address], [address], 05/22/2023 07:21:05 05/21/19 24 05/22/2023 COMPR EHENS SAVANNA METAB OLIC PANEL albumin 4.9 g/dL 3.6-5. 1 normal Not Available [address], [address], 05/22/2023 07:21:05 05/21/19 24 05/22/2023 COMPR EHENS SAVANNA METAB OLIC PANEL globulin 3.0 g/dL_ (calc ) 1.9-3. 7 normal Not Available [address], [address], 05/22/2023 07:21:05 05/21/19 24 05/22/2023 COMPR EHENS SAVANNA METAB OLIC PANEL albumin/glob ulin ratio 1.6 (calc ) 1.0-2. 5 normal Not Available [address], [address], 05/22/2023 07:21:05 05/21/19 24 05/22/2023 COMPR EHENS SAVANNA METAB OLIC PANEL bilirubin, total 0.5 mg/dL 0.2-1. 2 normal Not Available [address], [address], 05/22/2023 07:21:05 05/21/19 24 05/22/2023 COMPR EHENS SAVANNA METAB OLIC PANEL alkaline phosphatase 68 U/L 31-125 normal Not Available [address], [address], 05/22/2023 07:21:05 05/21/19 24 05/22/2023 COMPR EHENS SAVANNA METAB OLIC PANEL AST 18 U/L 10-35 normal Not Available [address], [address], 05/22/2023 07:21:05 05/21/19 24 05/22/2023 COMPR EHENS SAVANNA METAB OLIC PANEL ALT 13 U/L 6-29 normal Not Available [address], [address], 05/22/2023 07:21:05 05/21/19 24 05/22/2023 CBC (INCL UDES DIFF/ PLT) white blood cell count 10.1 thous and/u L 3.8-10 .8 normal Not Available [address], [address], 05/22/2023 07:09:14 05/21/19 24 05/22/2023 CBC (INCL UDES DIFF/ PLT) red blood cell count 4.73 dalia on/uL 3.80-5 .10 normal Not Available [address], [address], 05/22/2023 07:09:14 05/21/19 24 05/22/2023 CBC (INCL UDES DIFF/ PLT) hemoglobin 13.9 g/dL 11.7-1 5.5 normal Not Available [facility] [address], [address], 05/22/2023 07:09:14 05/21/19 24 05/22/2023 CBC (INCL UDES DIFF/ PLT) hematocrit 42.1 % 35.0-4 5.0 normal Not Available [address], [address], 05/22/2023 07:09:14 05/21/19 24 05/22/2023 CBC (INCL UDES DIFF/ PLT) MCV 89.0 fL 80.0-1 00.0 normal Not Available [address], [address], 05/22/2023 07:09:14 05/21/19 24 05/22/2023 CBC (INCL UDES DIFF/ PLT) MCH 29.4 pg 27.0-3 3.0 normal Not Available [address], [address], 05/22/2023 07:09:14 05/21/19 24 05/22/2023 CBC (INCL UDES DIFF/ PLT) MCHC 33.0 g/dL 32.0-3 6.0 normal Not Available [address], [address], 05/22/2023 07:09:14 05/21/19 24 05/22/2023 CBC (INCL UDES DIFF/ PLT) RDW 12.2 % 11.0-1 5.0 normal Not Available [address], [address], 05/22/2023 07:09:14 05/21/19 24 05/22/2023 CBC (INCL UDES DIFF/ PLT) platelet count 377 thous and/u L 140-40 0 normal Not Available [address], [address], 05/22/2023 07:09:14 05/21/19 24 05/22/2023 CBC (INCL UDES DIFF/ PLT) MPV 10.7 fL 7.5-12 .5 normal Not Available [address], [address], 05/22/2023 07:09:14 05/21/19 24 05/22/2023 CBC (INCL UDES DIFF/ PLT) absolute neutrophils 7383 cells /uL 1500-7 800 normal Not Available [address], [address], 05/22/2023 07:09:14 05/21/19 24 05/22/2023 CBC (INCL UDES DIFF/ PLT) absolute lymphocytes 2172 cells /uL 850-39 00 normal Not Available [address], [address], 05/22/2023 07:09:14 05/21/19 24 05/22/2023 CBC (INCL UDES DIFF/ PLT) absolute monocytes 475 cells /uL 200-95 0 normal Not Available [address], [address], 05/22/2023 07:09:14 05/21/19 24 05/22/2023 CBC (INCL UDES DIFF/ PLT) absolute eosinophils 30 cells /uL 15-500 normal Not Available [address], [address], 05/22/2023 07:09:14 05/21/19 24 05/22/2023 CBC (INCL UDES DIFF/ PLT) absolute basophils 40 cells /uL 0-200 normal Not Available [facility] [address], [address], 05/22/2023 07:09:14 05/21/19 24 05/22/2023 CBC (INCL UDES DIFF/ PLT) neutrophils 73.1 % normal Not Available [facility] [address], [address], 05/22/2023 07:09:14 05/21/19 24 05/22/2023 CBC (INCL UDES DIFF/ PLT) lymphocytes 21.5 % normal Not Available [address], [address], 05/22/2023 07:09:14 05/21/19 24 05/22/2023 CBC (INCL UDES DIFF/ PLT) monocytes 4.7 % normal Not Available [address], [address], 05/22/2023 07:09:14 05/21/19 24 05/22/2023 CBC (INCL UDES DIFF/ PLT) eosinophils 0.3 % normal Not Available [address], [address], 05/22/2023 07:09:14 05/21/19 24 05/22/2023 CBC (INCL UDES DIFF/ PLT) basophils 0.4 % normal Not Available [address], [address], 05/22/2023 07:09:14 05/21/19 24 05/22/2023 TSH TSH 0.59 mIU/L normal Refer ence Range > or = 20 Years 0.40- 4.50 Pregn ben Range s First trime ster 0.26- 2.66 Secon d trime ster 0.55- 2.73 Third trime ster 0.43- 2.91 Not Available [address], [address], 05/22/2023 08:05:58 07/13/19 24 07/07/2023 CT, head + orbit s, w/o contr ast No observ ation record ed. [facility] [address] [place], [address], 07/13/2023 14:24:32 Result Notes None recorded. Problems Name Problem SNOMED Code Status Onset Date Resolution Date Notes Provider Name and Address Organization Details Recorded Time Anxiety 67685978 Active 023 GINO toure [facility] 3 12:10:09 Insomnia 388362614 Active 023 GINO toure [facility] 3 12:10:08 Alcohol dependence 93851679 Active 023 GINO toure [facility] 3 12:10:09 Fatigue 67508455 Active 024 Kennedy Rai MD [address] [place] [address], [phone], [facility] 4 12:27:12 Neuropathy 998804571 Active 024 Kennedy Rai MD [address] [place] [address], [phone], [facility] 4 12:29:08 Closed fracture of orbit 21556998 Active 024 Kennedy Rai MD [address] [place] [address], [phone], [facility] 4 12:51:01 Vaginal discharge 296494587 Active 024 Kennedy Rai MD [address] [place] [address], [address], [facility] 4 12:51:22 Closed fracture of nasal bones 09753044 Active 024 Kennedy Rai MD [address] [place] [phone], [facility] 4 12:52:14 Problem Notes None recorded. Procedures Surgical History Date Name Laterality Status Provider Name and Address Organization Details Recorded Time procedure on face completed Alondra banks [facility] 07/13/2023 18:38:30 Tonsillectomy completed [facility] 07/13/2023 18:38:36 retinotomy completed [facility], LMarioLMarioCMario 07/13/2023 18:38:52 Imaging Results None recorded. Procedure Notes None recorded. Medical Equipment None Reported. Allergies Allergen ID Allergen Name Allergen Category Reaction Reaction Severity Criticality Documentation Date Start Date Code Code System Note Provider Name and Address Organization Details Recorded Time 04059 amitripty line hydrochlo ride medicatio n Not available Not available Not available 09/12/202213199 8 RxNorm Comme nt: Recor ded 07/14 4:32 PM by Erin banks LPN, Offic e Visit ; Promo mu; Jackson reece ce: *; Reaso n: Drug aller gy; ; GINO toure [facility] 3 12:40:29 407 morphine medicatio n vomiting mild low 05/09/2022 7052 RxNorm Alondra [facility], LMarioL.CMario 4 18:37:40 408 amitripty line medicatio n other moderate low 05/09/2022 704 RxNorm LEGS GO NUMB Alondraivan Escobar [facility], L.L[facility] 4 18:37:34 87658 amoxicill in medicatio n rash Not available low 09/01/2023 723 RxNorm [facility] 4 12:33:19 Medications Name [...] Updated DateTime 4 160.02 cm 19 kg/m2 18918.3 8 g 97.6 [degF] 99 % 99 % 64 /min 110/80 mm[Hg] TITI SANCHEZ [facility] 4 12:15:56 Date Recorded Body height Body mass index (BMI) Body weight Oxygen saturation Oxygen saturation in Arterial blood by Pulse oximetry Heart rate Respiratory rate Body temperature Systolic And Diastolic Provider Name and Address Organization Details Last Updated DateTime 4 160.02 cm 19 kg/m2 90553.3 8 g 95 % 95 % 100 /min 16 /min 98.8 [degF] 106/78 mm[Hg] Alondra Escobar [facility] 4 18:42:37 Date Recorded Body height Respiratory rate Body mass index (BMI) Body weight Body temperature Heart rate Oxygen saturation Oxygen saturation in Arterial blood by Pulse oximetry Systolic And Diastolic Provider Name and Address Organization Details Last Updated DateTime 4 160.02 cm 20 /min 18.3 kg/m2 32948.7 1 g 97.9 [degF] 90 /min 98 % 98 % 92/60 mm[Hg] [facility] 4 12:33:02 Date Recorded Body height Body mass index (BMI) Body weight Oxygen saturation Oxygen saturation in Arterial blood by Pulse oximetry Heart rate Body temperature Systolic And Diastolic Provider Name and Address Organization Details Last Updated DateTime 3 160.02 cm 30.8 kg/m2 06383.0 7 g 98 % 98 % 93 /min 97.9 [degF] 110/78 mm[Hg] Nicole Taylor [facility] 3 14:41:47 Date Recorded Body height Respiratory rate Body mass index (BMI) Body weight Body temperature Heart rate Oxygen saturation Oxygen saturation in Arterial blood by Pulse oximetry Systolic And Diastolic Provider Name and Address Organization Details Last Updated DateTime 3 160.02 cm 20 /min 18.6 kg/m2 44421.9 g 97.6 [degF] 119 /min 99 % 99 % 104/78 mm[Hg] GINO BARNARD [facility] 3 10:58:03 Social History Question Answer Notes LastModified by [employer] Details LastModified Time Tobacco Smoking Status Current Every Day Smoker [facility] 07/13/2023 18:38:10 What Was The Date Of Your Most Recent Tobacco Screening? 07/13/2023 Information not available 07/13/2023 Sex: Unknown Functional Status Question Answer Note LastModified by [employer] Details LastModified Time Do you use any illicit or recreational drugs? Yes MARIJUANA Information not available 07/13/2023 What is your level of alcohol consumption? Occasional Information not available 07/13/2023 Mental Status None recorded. Family History Nothing Reported. Medical History Condition Response Coronary Artery Disease N Other Y Gout N Kidney Stones N Blood Diseases N Hyperthyroidism N Breast Cancer N Blood Transfusion N Hypothyroidism N Depression N COPD N Lung Disease N Defects or Inherited Disease N Developmental or Behavioral Disorders N Breast Problem N Difficulty Swallowing N Anesthesia Complications N Anxiety Disorder Y Meniere's disease N Muscle, Joint, or Bone Problems N Vision or Eye Problems N Arthritis N Polyps N Infertility N Cancer N Varicosities N Stroke N Endometriosis N Bladder or Kidney Problems N High Cholesterol N Liver Disease N Headaches N Fibromyalgia N Kidney Disease N Allergies/Hayfever N Heart [...] N Heart Disease N Pulmonary Embolism N Chronic Ear Infections N Pre-Eclampsia N Hypertension N Chicken Pox N Autism Spectrum Disorder (ASD) N Osteoporosis N Thrombophilias N Gynecological HistoryNo gynecological history recorded. Obstetrics History GPAL:G 0 P 0 0 0 0 Immunizations Vaccine Type Date Status Note Provider Nam e and Address Organization Details Recorded Time COVID-19, mRNA, LNP-S, PF, 30 mcg/0.3 mL dose 02/25/2021 completed Alondra toure [facility] 07/13/2023 18:37:02 COVID-19, mRNA, LNP-S, PF, 30 mcg/0.3 mL dose, adriana-sucrose 04/15/2021 completed Alondra toure [facility] 07/13/2023 18:37:02 Influenza, split virus, quadrivalent, PF 12/07/2018 completed Alondra toure [facility] 07/13/2023 18:37:02 TST-PPD intradermal 01/01/2022 ramonita toure [facility] 09/28/2022 10:53:01 Past Encounters Encounter ID Performer Location Encounter Start Date Encounter Closed Date Diagnosis/Indication Diagnosis SNOMED-CT Code Diagnosis ICD10 Code Diagnosis IMO Codes Diagnosis Note [id number] PATRICIA EVANS [facility] ([facility]) [address] [place] [phone] 05/09/2022 14:09:43 05/09/2022 15:19:49 Infection of tooth 421965973 K04.7 Nausea 287522905 R11.0 Injection given 83676659 2 Z98.890 [id number] Kennedy Rai MD [facility] ([facility]) [address] [place] [phone] 05/28/2022 16:28:08 06/03/2022 14:33:19 Anxiety 69268852 F41.9 discussed the safety concerns about her medication s especially in the context of alcohol use. She expresses desire to not drink and come off medication s. we will proceed with lowering the dose and refilling the meds. Patient was encouraged to sustain from alcohol use. We will start sertraline and hydroxyzin e to help manage her anxiety safer. F/u in one month [id number] Kennedy Rai MD [facility] ([facility]) [address] [place] [phone] 06/26/2022 15:27:34 06/26/2022 16:29:24 Anxiety 06416741 F41.9 discussed the safety concerns about her medication s especially in the context of alcohol use. She expresses desire to not drink and come off medication s. We will try buspirone on a scheduled basis. The patient intends to seek additional help through [facility]. Insomnia 151601577 G47.0 0 Alcohol dependence 28375 003 F10.20 recommend cessation. Patient intends to seek resources as above. [id number] LAURYN NOE [facility] ([facility]) [address] [place] [phone] 09/11/2022 14:27:51 09/11/2022 16:53:55 [id number] Kennedy Rai MD [facility] ([facility]) [address] [place] [phone] 09/28/2022 10:48:59 09/28/2022 12:48:04 Anxiety 69707011 F41.9 Patient is struggling significan tly with her anxiety. The patient would benefit from daily medication s. Patient did not do well on Zoloft. We will start her on bupropion and continue clonazepam . Alcohol dependence 26375 003 F10.20 recommend cessation. Patient has been establishe d with [facility] and has a case maker who was present during the interview today. Patient is receiving therapy and in the process of obtaining further additional help with psychiatry . Discussed the importance of not drinking while taking his medication s and the patient expresses understand ing. Patient is currently not driving [id number] Kennedy Rai MD [facility] ([facility]) [address] [place] [phone] 05/21/2023 12:11:19 05/21/2023 12:54:25 Renewal of prescription 080551994 Z76.0 Alcohol dependence 74709 003 F10.20 Continue with alcohol cessation and mental health providers. Anxiety 25719297 F41.9 Continues to do well on clonazepam . Fatigue 11773888 R53.83 Patient reports that she has been tired and fatigued. And we will obtain regular lab work and include a TSH. Hyperlipid emia screening 761967796 Z13.220 Insomnia 708255679 G47.0 0 Neuropathy 063491432 G62 .9 [id number] PATRICIA CARIAS [facility] ([facility]) [address] [place] [phone] 07/13/2023 18:33:57 07/13/2023 18:54:44 Toothache 71734031 K08.89 Will put patient on a short course of antibiotic as a prophylact ic for her dental cleaning tomorrow. [id number] Kennedy Rai MD [facility] ([facility]) [address] [place] [phone] 09/01/2023 12:26:55 09/01/2023 14:14:08 Vaginal discharge 667617246 N89.8 Based on descriptio n of discharge it could be yeast or possible bacterial vaginosis. Will treat with 1 dose of Diflucan and 2000 mg of metronidaz ole. Was instructed not to drink alcohol with the metronidaz ole. Closed fra cture of orbit 91849464 S02.80XD Reviewed records from the emergency department and discussed this with the patient. The patient is 8 weeks from injury and this is likely healed. Was minimally displaced and did not require any interventi on. The numbness is likely to improve over time. Patient did see ENT. Tuberculos is screening 610775026 Z11.[address] and place tuberculos is today. Health Concerns Section Related Observation LastModified by Organization Detai ls LastModified Time None Recorded Concern Status LastModified by Organization Details LastModified Time None Recorded Advance Directives Directive None Recorded Payers Insurance Date Sequence Insurance Name Policy Number Policy Lemons Covered Member ID Lemons Member ID Guarantor Name 01/19/2024 [place]ICA[place] [facility] (INSTITUTIONAL ) Yolanda Wray [id number] Yolanda Wray 09/07/2023 3 *SELF PAY* Bruno Wray 01/19/2024 1 [facility] (MEDICAID HMO) Yolanda Wray [id number] Yolanda Wray 01/19/2024 2 [place] Yolanda Wray [id number] oYlanda Wray 01/19/2024 1 [facility] (MEDICAID REPLACEMENT - HMO) [facility] Yolanda Wray [id number] Yolanda Wray Notes Date Note Type Note Provider Name and Address Organization Details Recorded Time 09/11/2022 text/html Patient is here to discuss her medications. LARUYN NOE [address] [place] [address], [phone], [facility] 09/11/2022 16:53:54 09/28/2022 text/html Patient is a [...] dates for personal reasons. Kennedy Rai MD [address] [place], [phone], [facility] 09/28/2022 11:46:29 05/21/2023 text/html This is [...] working well for her. Kennedy Rai MD [address] [place] [address], [phone], [facility] 05/23/2023 08:57:04 07/13/2023 text/html ROS as noted in the HPI Pt states she has a dentist appt tomorrow at 8 am [...] she sees the dentist tomorrow. PATRICIA CARIAS [address] [place] [address], [phone], [facility] 07/13/2023 18:53:20 09/01/2023 text/html This is [...] need it for employment. Kennedy Rai MD [address] [place] [address], [phone], [facility] 09/02/2023 12:46:21 OBGyn Episode No OBEpisode recorded.
[2024-11-30 17:44] LABS: Alanine Aminotransferase 9 U/L (0-33); Albumin Level 4.6 g/dL (3.5-5.2); Alcohol Level 161 mg/dL (0-10); Alkaline Phosphatase 90 U/L (35-105); Aspartate Amino Transferase 18 U/L (0-32); Blood Urea Nitrogen 5 mg/dL (6-20); Calcium 9.1 mg/dL (8.5-10.5); Carbon Dioxide 21 mmol/L (22-29); Chloride 103 mmol/L (98-107); Creatinine Clr Calc Pharmacy 110.8598; Globulin 3.1 g/dL (1.3-4.6); Glucose 95 mg/dL (65-115); Osmolality Calculated 289 mOsm/kg (285-295); Sodium 141 mmol/L (136-145); Total Protein 7.7 g/dL (6.6-8.7)
[2024-11-30 17:45] LABS: Anion Gap 21.0 (5-19); Potassium 4.0 mmol/L (3.5-5.1)
[2024-11-30 18:24] VITALS: BP 127/81; PULSE 67; O2SAT 98
--- NOTE | 2024-11-30 19:05 | ED_ITS ---
HPI - Seizure 2 General: Chief Complaint: Seizure Stated Complaint: seizure Time Seen by Provider: 11/30/24 16:46 History of Present Illness: HPI Narrative: 49-year-old female named Yolanda Wray pre sents for suspected seizure. Patient reports a history of seizures but states she has not taken levetiracetam (Keppra) for nine days. She is anxious and requests help with calming medication; clinician discussed clonazepam (Klonopin) and lorazepam (Ativan), and patient agreed to clonazepam. Patient indicates she did not drink alcohol today. Clinician notes no documented history of seizures in the chart. Review of systems as available: anxiety and tearfulness; denies active delusions. Seizure History: Yes Related Data Previous Rx's ?Medication ?Instructions ?Recorded clonazepam 0.5 mg tablet (Klonopin) 0.5 mg PO BID PRN anxiety #30 tabs 11/30/24 Allergies Allergy/AdvReac Type Severity Reaction Status Date / Time albuterol Allergy Severe ALGY-Anaphy Verified 08/30/24 03:13 laxis amitriptyline Allergy ADR-Numbnes Verified 08/30/24 03:13 s morphine Allergy ADR-Vomitin Verified 08/30/24 03:13 g PFSH ED 2 PFSH: Medical History (Updated 11/30/24 @ 19:06 by Justice Mendoza DO) Alcohol dependence Insomnia Neuropathy Psychiatric care Anxiety Seizure From benzo and Etoh withdrawal Surgical History Hx of tonsillectomy Family History Other Diabetes mellitus, type 2 Heart disease Social History Smoking and tobacco/nicotine status: current every day tobacco/nicotine user cigarettes Packs smoked per day: 0.5 Years cigarettes smoked: 29 Quit status (tobacco/nicotine): not considering quitting Second hand smoke exposure: No Alcohol intake: current Alcohol intake frequency: 0-2 Drinks per Day Alcohol type: hard liquor Substance/Drug Use: current Substance/Drug use frequency: few times a week Adopted: No Caregiver/support person: No Household members: none Housing: Apartment Marital status: Number of children: 2 Number of grandchildren: 0 Highest education level completed: Associate Degree: Occupational, Technical, Vocational Program Education level 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 service: No Current occupational status: unemployed Pets and animals: Yes Pets & animals: cat(s) and dog(s) Leisure activites: exercise and other Leisure activities details: outdoors Sexually active: No Do you think of yourself as: Straight/Heterosexual Current gender identity: Female Jia/Uatsdin: [employer] Special jia needs: No Agree to transfusion: Yes Female Reproductive History: Para: 2 Physical Exam 2 Const: COMMON NORMALS: no acute distress, patient oriented x3 and alert HENMT: COMMON NORMALS: normocephalic and atraumatic HEAD & SCALP: n ormocephalic and atraumatic Eye: COMMON NORMALS: Equal, round and reactive pupils present, EOMs intact bilaterally and no scleral icterus PUPIL: Yes Equal, round and reactive pupils present Resp: COMMON NORMALS: normal respiratory effort and No retractions Cardio: COMMON NORMALS: regular rate, regular rhythm and No murmurs present (Cardio) RATE: regular rate RHYTHM: regular rhythm GI: COMMON NORMALS: Normal to inspection, nondistended, normoactive bowel sounds present, Soft to palpation and non-tender PALPATION: Yes Soft to palpation Neuro: COMMON NORMALS: patient oriented x3 SENSORIUM/ORIENTATION: Yes alert Psych: OTHER: Tearful and anxious. no SI/HI, no delusions Skin: COMMON NORMALS: no rashes or lesions noted GENERAL SKIN EXAM: no rashes or lesions noted Course 2 Vital Signs: Vital signs: Vital Signs Temperature 98.2 F 11/30/24 16:35 Pulse Rate 67 11/30/24 18:24 Respiratory Rate 16 11/30/24 16:35 Blood Pressure 127/81 11/30/24 18:24 Pulse Oximetry 98 11/30/24 18:24 Oxygen Delivery Me thod Room Air 11/30/24 16:35 MDM - Seizure MDM Narrative Medical decision making narrative: 49-year-old female with suspected seizure; patient reports prior seizures but chart has no documented history. Off medication for nine days. Anxiety prominent; requests benzodiazepine. Denies alcohol today, but EtOH level 160 Vitals reportedly stable; borderline tachycardia. Physical exam notable for tearfulness, anxiety, and mild slurred speech; no active delusions mentioned. Basic blood work planned. Clonazepam dose planned for anxiolysis. Labs unremarkable. No seizures while here. WIll DC with follow up to PCP for med refills. Lab Data 11/30/24 16:15 11/30/24 16:15 Labs: Laboratory Results WBC 6.04 10^3/uL (3.29-11.43) 11/30/24 16:15 RBC 4.77 10^6/uL (3.85-5.65) 11/30/24 16:15 Hgb 13.80 g/dL (11.27-16.99) 11/30/24 16:15 Hct 41.8 % (36-47) 11/30/24 16:15 MCV 87.6 fl (85-98) 11/30/24 16:15 MCH 28.9 pg (27-33) 11/30/24 16:15 MCHC 33.0 g/dL (30-55) 11/30/24 16:15 RDW 12.6 % (12.1-15.1) 11/30/24 16:15 Plt Count 258 10^3/cmm (157-399) 11/30/24 16:15 MPV 11.4 fL (7.4-10.4) H 11/30/24 16:15 Neut % (Auto) 60.9 % 11/30/24 16:15 Lymph % (Auto) 33.9 % 11/30/24 16:15 [place] % (Auto) 4.1 % 11/30/24 16:15 Eos % (Auto) 0.8 % 11/30/24 16:15 Baso % (Auto) 0.3 % 11/30/24 16:15 Neut # (Auto) 3.67 10^3/uL (1.8-7.7) 11/30/24 16:15 Lymph # (Auto) 2.1 10^3/uL (0.8-4.8) 11/30/24 16:15 [place] # (Auto) 0.3 10^3/uL (0.2-0.9) 11/30/24 16:15 Eos # (Auto) 0.1 10^3/uL (0.0-0.8) 11/30/24 16:15 Baso # (Auto) 0.0 10^3/uL (0.0-0.1) 11/30/24 16:15 Nucleated RBC % (auto) 0 % 11/30/24 16:15 Nucleated RBCs # 0.0 /100WBC 11/30/24 16:15 Sodium 141 mmol/L (136-145) 11/30/24 16:15 Potassium 4.0 mmol/L (3.5-5.1) 11/30/24 16:15 Chloride 103 mmol/L (98-107) 11/30/24 16:15 Carbon Dioxide 21 mmol/L (22-29) L 11/30/24 16:15 Anion Gap 21.0 (5-19) H 11/30/24 16:15 BUN 5 mg/dL (6-20) L 11/30/24 16:15 Creatinine 0.5 mg/dL (0.5-0.9) 11/30/24 16:15 GFR Calculation 131.7 mL/min (90-130) H 11/30/24 16:15 Glucose 95 mg/dL (65-115) 11/30/24 16:15 Calculated Osmolality 289 mOsm/kg (285-295) 11/30/24 16:15 Calcium 9.1 mg/dL (8.5-10.5) 11/30/24 16:15 Total Bilirubin 0.5 mg/dL (0.15-1.2) 11/30/24 16:15 AST 18 U/L (0-32) 11/30/24 16:15 ALT 9 U/L (0-33) 11/30/24 16:15 Alkaline Phosphatase 90 U/L (35-105) 11/30/24 16:15 Total Protein 7.7 g/dL (6.6-8.7) 11/30/24 16:15 Albumin 4.6 g/dL (3.5-5.2) 11/30/24 16:15 Globulin 3.1 g/dL (1.3-4.6) 11/30/24 16:15 Ethyl Alcohol 161 mg/dL (0-10) H 11/30/24 16:15 No radiology studies performed this visit Discharge Plan Discharge Patient Disposition: Home Clinical Impression: Suspected condition not found Condition: Stable Prescriptions: New clonazepam [Klonopin] 0.5 mg tablet 0.5 mg PO BID PRN (Reason: anxiety) Qty: 30 0RF Discharge Orders: Discharge ED (Routine); Ordered 11/30/24 Ordered By: Justice Mendoza Referrals: Lisset Ayers DO [Primary Care Provider, Family Practice] Patient Instructions: Clonazepam (By mouth), Patient Portal & Alexander Instructions Print Language: Mozambican Coding Level of Care Code ED Director Pa[employer] for [facility]
[2024-11-30] MEDS: ondansetron hcl ODT 4 mg Tab PO (19:22)
== END 2024-11-30 19:23 | disposition home or self-care (01) ==
PROVIDERS: Emergency Provider Student in an Organized Health Care Education/Training Program; PCP Family Medicine
DX: Z03.89 Encounter for observation for other suspected diseases and conditions ruled out (principal); F17.210 Nicotine dependence, cigarettes, uncomplicated
CPT/HCPCS: 80053; 80307; 85025; 99283; J9999; Q0162

== ENCOUNTER 2025-01-08 14:46 | Emergency (ER) | payer MEDICAID, SELFPAY ==
[2024-05-11 11:34] VITALS: BP 139/75; BMI 19.2
[2025-01-08 14:56] VITALS: BP 112/73; PULSE 113; RESP 17; TEMP 36.5; O2SAT 95; BMI 26.2
--- NOTE | 2025-01-08 15:04 | PC.NURSE ---
PT PRESENTED TO ED TRIAGE WITH A DOG. PT GAVE A PAPER NOTE WHICH STATED THAT THE DOG WAS AN EMOTIONAL SUPPORT ANIMAL. WHILE IN TRIAGE, SECURITY [place], AND ANDREINA, COVER MAKING MACHINE OPERATOR, ARRIVED TO SPEAK WITH PT. STATED TO PT THAT HOSPITAL POLICY DOES NOT ALLOW FOR EMOTIONAL SUPPORT ANIMALS TO BE ON HOSPITAL PROPERTY. KINDLY ASKED PT TO PLACE THE DOG IN HER VEHICLE WHILE SHE IS BEING TREATED IN THE ED. PT REFUSED TO TAKE DOG OUTSIDE STATING THAT ACCORDING TO HER PAPER PRESCRIPTION IT WAS HER EMOTIONAL SUPPORT ANIMAL AND IT WOULD DETECT HER SEIZURES. INFORMED PT THAT THE PAPER PRESCRIPTION THAT PT HANDED TO STATED THAT THE ANIMAL WAS AN EMOTIONAL SUPPORT ANIMAL AND NOT A MEDICAL SERVICE ANIMAL WHICH WOULD NOT ALLOW THE DOG TO STAY IN THE BUILDING WITH THE PT. PT CONTINUED TO STATE THAT SHE HAS BEEN HERE 4 DIFFERENT TIMES WITH LAURA , HER DOG, AND THERE HAVE NEVER BEEN ANY ISSUES. INFORMED PT THAT THE HOSPITAL WAS MORE THAN HAPPY TO TREAT HER FOR HER MEDICAL NEEDS AT THIS TIME, BUT THE DOG JUST NEEDED TO BE OUT OF THE THE HOSPITAL WHILE SHE WAS BEING TREATED. AT THIS TIME, ATTEMPTED TO HAND PT BACK HER PAPER PRESCRIPTION. PT CONTINUED TO TALK AND NOT ANSWER . THIS NURSE INFORMED PT THAT WAS TRYING TO GIVE HER THE PAPER BACK. PT STATED I WON'T TAKE IT BACK. I GUESS I'LL JUST RECEIVE IT. PT THEN TOOK THE PAPER BACK. AND COVER MAKING MACHINE OPERATOR THEN STATED THEY WERE GOING TO MAKE SOME PHONE CALLS AND COME BACK. AT THIS TIME, AND COVER MAKING MACHINE OPERATOR LEFT THE TRIAGE ROOM. THIS NURSE COMPLETED TRIAGE WITH PT. THIS NURSE STEPPED OUTSIDE THE TRIAGE ROOM AND ASKED AND COVER MAKING MACHINE OPERATOR WHERE THE PT NEEDED TO GO. COVER MAKING MACHINE OPERATOR AND INFORMED THIS NURSE THAT THE PT COULD GO BACK TO THE WAITING ROOM AT THIS TIME. PT WAS SENT BACK TO THE WAITING ROOM WITH HER DOG.
--- OUTSIDE RECORDS SUMMARY | 2025-01-08 15:33 | XMS_ITS | Data Portability ---
Author Organization [facility] Clark Leora [place] [facility] Address [address] [address] Care Team Providers Care Re Recording Mixer Name Role Phone KENNEDY RAI Primary Care [...] Lab CMP, serum or plasma 2023 024 [facility], [address] [place] [address], [address] [place], [address], 4 07:09:14 lipid panel, blood 2023 024 [facility], [address] [place] [address], [address] [place], [address], 4 08:08:51 TSH, serum or plasma 2023 024 [facility], [address] [place] [address], [address] [place], [address], 4 05:01:52 CBC 2023 [facility], [address] [address], [address] [place], [address], 4 08:08:51 Referral None recorded. Procedures None recorded. Surgeries None recorded. Imaging None recorded. Medication Orders [facility]if[facility]an 150 mg tablet 2023 024 [id number], [address], [place], [place], [id number], 4 13:02:09 metronidazo le 500 mg tablet 2023 024 [facility]61698, [address], [place], [place], [id number], 4 13:02:17 Tubersol 5 tub. unit/0.1 mL intradermal injection solution 2023 024 [facility] Not available 12:45:44 amoxicillin 500 mg tablet 2023 024 [facility] #57993, [address], [place], [place], [id number], 4 12:33:52 clonazepam 1 mg tablet 2023 024 [facility], [address], [place], [place], [id number], 4 12:27:06 gabapentin 100 mg capsule 2023 024 [facility], [address], [place], [place], [id number], 4 12:37:56 Wellbutrin XL 150 mg 24 hr tablet, extended release 2022 023 [facility] #63020, [address], [place], [place], [id number], 4 11:45:56 clonazepam 1 mg tablet 2022 023 [facility] #34286, [address], [place], [place], [id number], 3 11:19:59 Patient TargetsNo targets recorded. Patient InstructionsNo instructions recorded. Reason for Referral None Reported. Results Created Date Observation Date Name Description Value Unit Range Abnormal Flag Note LastModifiedBy Organization Detail LastModifiedTime 05/21/19 24 05/22/2023 LIPID PANEL , STAND ALEA cholesterol, total 225 mg/dL <200 high Not Available [address] [address] [place], [address], 05/22/2023 07:21:04 05/21/19 24 05/22/2023 LIPID PANEL , STAND [place]LEA HDL cholesterol 68 mg/dL > or = 50 normal Not Available [facility] [address] [address] [place], [address], 05/22/2023 07:21:04 05/21/19 24 05/22/2023 LIPID PANEL , STAND ALEA triglyceride s 96 mg/dL <150 normal Not Available [facility] [address] [address] [place], [address], 05/22/2023 07:21:04 05/21/19 24 05/22/2023 LIPID PANEL [...] n SS et al. PARTHA. 2013; 310(1 ): 2061- 2068 (http ://ed ucati on.[employer]. Qminder/f aq/FA Q164) Not Available [facility] [address] [address] [address], [place], [address], 05/22/2023 07:21:04 05/21/19 24 05/22/2023 LIPID PANEL , STAND ALEA chol/HDLC ratio 3.3 (calc ) <5.0 normal Not Available [facility] [address] [address] [place], [address], 05/22/2023 07:21:04 05/21/19 24 05/22/2023 LIPID PANEL , STAND ALEA non HDL cholesterol 157 mg/dL _(aristeo c) <130 high For patie nts with diabe juan plus 1 major ASCVD risk facto r, treat ing to a non-H DL-C goal of <100 mg/dL (LDL- C of <70 mg/dL ) is consi dered a thera peelvin c optio n. Not Available [facility] [address] [address] [place], [address], 05/22/2023 07:21:04 05/21/1905/22/2023 COMPR EHENS SAVANNA METAB OLIC PANEL glucose 131 mg/dL 65-99 high Fasti ng refer ence inter halie For someo ne witho ut known diabe juan, a gluco se value >125 mg/dL indic ates that they may have diabe juan and this shoul d be confi rmed with a follo w-up test. Not Available [facility] [address] [address] [place], [address], 05/22/2023 07:21:05 05/21/19 24 05/22/2023 COMPR EHENS SAVANNA METAB OLIC PANEL urea nitrogen (BUN) 11 mg/dL 7-25 normal Not Available [facility] [address] [address] [place], [address], 05/22/2023 07:21:05 05/21/19 24 05/22/2023 COMPR EHENS SAVANNA METAB OLIC PANEL creatinine 0.75 mg/dL 0.50-0 .99 normal Not Available [address], [address], 05/22/2023 07:21:05 05/21/19 24 05/22/2023 COMPR EHENS SAVANNA METAB OLIC PANEL eGFR 99 mL/mi n/1.7 3m2 > or = 60 normal Not Available [address], [address], 05/22/2023 07:21:05 05/21/19 24 05/22/2023 COMPR EHENS SAVANNA METAB OLIC PANEL BUN/creatini ne ratio SEE NOTE: (calc ) 6-22 Not Repor mu: BUN and Creat inine are withi n refer ence range . Not Available [address], [address], 05/22/2023 07:21:05 05/21/19 24 05/22/2023 COMPR EHENS SAVANNA METAB OLIC PANEL sodium 137 mmol/ L 135-14 6 normal Not Available [address], [address], 05/22/2023 07:21:05 05/21/19 24 05/22/2023 COMPR EHENS SAVANNA METAB OLIC PANEL potassium 4.7 mmol/ L 3.5-5. 3 normal Not Available [address], [address], 05/22/2023 07:21:05 05/21/19 24 05/22/2023 COMPR EHENS SAVANNA METAB OLIC PANEL chloride 99 mmol/ L 98-110 normal Not Available [address], [address], 05/22/2023 07:21:05 05/21/19 24 05/22/2023 COMPR EHENS SAVANNA METAB OLIC PANEL carbon dioxide 28 mmol/ L 20-32 normal Not Available [address], [address], 05/22/2023 07:21:05 05/21/19 24 05/22/2023 COMPR EHENS SAVANNA METAB OLIC PANEL calcium 9.8 mg/dL 8.6-10 .2 normal Not Available [address], [address], 05/22/2023 07:21:05 05/21/19 24 05/22/2023 COMPR EHENS SAVANNA METAB OLIC PANEL protein, total 7.9 g/dL 6.1-8. 1 normal Not Available [address], [address], 05/22/2023 07:21:05 05/21/19 24 05/22/2023 COMPR EHENS SAVANNA METAB OLIC PANEL albumin 4.9 g/dL 3.6-5. 1 normal Not Available [address], [address], 05/22/2023 07:21:05 05/21/19 24 05/22/2023 COMPR EHENS SAVANNA METAB OLIC PANEL globulin 3.0 g/dL_ (calc ) 1.9-3. 7 normal Not Available [address], [address], 05/22/2023 07:21:05 05/21/19 24 05/22/2023 COMPR EHENS SAVANNA METAB OLIC PANEL albumin/glob ulin ratio 1.6 (calc ) 1.0-2. 5 normal Not Available [address], [address], 05/22/2023 07:21:05 05/21/19 24 05/22/2023 COMPR EHENS SAVANNA METAB OLIC PANEL bilirubin, total 0.5 mg/dL 0.2-1. 2 normal Not Available [address], [address], 05/22/2023 07:21:05 05/21/19 24 05/22/2023 COMPR EHENS SAVANNA METAB OLIC PANEL alkaline phosphatase 68 U/L 31-125 normal Not Available [address], [address], 05/22/2023 07:21:05 05/21/19 24 05/22/2023 COMPR EHENS SAVANNA METAB OLIC PANEL AST 18 U/L 10-35 normal Not Available [address], [address], 05/22/2023 07:21:05 05/21/19 24 05/22/2023 COMPR EHENS SAVANNA METAB OLIC PANEL ALT 13 U/L 6-29 normal Not Available [address], [address], 05/22/2023 07:21:05 05/21/19 24 05/22/2023 CBC (INCL UDES DIFF/ PLT) white blood cell count 10.1 thous and/u L 3.8-10 .8 normal Not Available [address], [address], 05/22/2023 07:09:14 05/21/19 24 05/22/2023 CBC (INCL UDES DIFF/ PLT) red blood cell count 4.73 dalia on/uL 3.80-5 .10 normal Not Available [address], [address], 05/22/2023 07:09:14 05/21/19 24 05/22/2023 CBC (INCL UDES DIFF/ PLT) hemoglobin 13.9 g/dL 11.7-1 5.5 normal Not Available [facility] [address], [address], 05/22/2023 07:09:14 05/21/19 24 05/22/2023 CBC (INCL UDES DIFF/ PLT) hematocrit 42.1 % 35.0-4 5.0 normal Not Available [address], [address], 05/22/2023 07:09:14 05/21/19 24 05/22/2023 CBC (INCL UDES DIFF/ PLT) MCV 89.0 fL 80.0-1 00.0 normal Not Available [address], [address], 05/22/2023 07:09:14 05/21/19 24 05/22/2023 CBC (INCL UDES DIFF/ PLT) MCH 29.4 pg 27.0-3 3.0 normal Not Available [address], [address], 05/22/2023 07:09:14 05/21/19 24 05/22/2023 CBC (INCL UDES DIFF/ PLT) MCHC 33.0 g/dL 32.0-3 6.0 normal Not Available [address], [address], 05/22/2023 07:09:14 05/21/19 24 05/22/2023 CBC (INCL UDES DIFF/ PLT) RDW 12.2 % 11.0-1 5.0 normal Not Available [address], [address], 05/22/2023 07:09:14 05/21/19 24 05/22/2023 CBC (INCL UDES DIFF/ PLT) platelet count 377 thous and/u L 140-40 0 normal Not Available [address], [address], 05/22/2023 07:09:14 05/21/19 24 05/22/2023 CBC (INCL UDES DIFF/ PLT) MPV 10.7 fL 7.5-12 .5 normal Not Available [address], [address], 05/22/2023 07:09:14 05/21/19 24 05/22/2023 CBC (INCL UDES DIFF/ PLT) absolute neutrophils 7383 cells /uL 1500-7 800 normal Not Available [address], [address], 05/22/2023 07:09:14 05/21/19 24 05/22/2023 CBC (INCL UDES DIFF/ PLT) absolute lymphocytes 2172 cells /uL 850-39 00 normal Not Available [address], [address], 05/22/2023 07:09:14 05/21/19 24 05/22/2023 CBC (INCL UDES DIFF/ PLT) absolute monocytes 475 cells /uL 200-95 0 normal Not Available [address], [address], 05/22/2023 07:09:14 05/21/19 24 05/22/2023 CBC (INCL UDES DIFF/ PLT) absolute eosinophils 30 cells /uL 15-500 normal Not Available [address], [address], 05/22/2023 07:09:14 05/21/19 24 05/22/2023 CBC (INCL UDES DIFF/ PLT) absolute basophils 40 cells /uL 0-200 normal Not Available [facility] [address], [address], 05/22/2023 07:09:14 05/21/19 24 05/22/2023 CBC (INCL UDES DIFF/ PLT) neutrophils 73.1 % normal Not Available [facility] [address], [address], 05/22/2023 07:09:14 05/21/19 24 05/22/2023 CBC (INCL UDES DIFF/ PLT) lymphocytes 21.5 % normal Not Available [address], [address], 05/22/2023 07:09:14 05/21/19 24 05/22/2023 CBC (INCL UDES DIFF/ PLT) monocytes 4.7 % normal Not Available [address], [address], 05/22/2023 07:09:14 05/21/19 24 05/22/2023 CBC (INCL UDES DIFF/ PLT) eosinophils 0.3 % normal Not Available [address], [address], 05/22/2023 07:09:14 05/21/19 24 05/22/2023 CBC (INCL UDES DIFF/ PLT) basophils 0.4 % normal Not Available [address], [address], 05/22/2023 07:09:14 05/21/19 24 05/22/2023 TSH TSH 0.59 mIU/L normal Refer ence Range > or = 20 Years 0.40- 4.50 Pregn ben Range s First trime ster 0.26- 2.66 Secon d trime ster 0.55- 2.73 Third trime ster 0.43- 2.91 Not Available [address], [address], 05/22/2023 08:05:58 07/13/19 24 07/07/2023 CT, head + orbit s, w/o contr ast No observ ation record ed. [facility] [address] [place], [address], 07/13/2023 14:24:32 Result Notes None recorded. Problems Name Problem SNOMED Code Status Onset Date Resolution Date Notes Provider Name and Address Organization Details Recorded Time Anxiety 60740281 Active 023 GINO toure [facility] 3 12:10:09 Insomnia 026872193 Active 023 GINO toure [facility] 3 12:10:08 Alcohol dependence 49092392 Active 023 GINO toure [facility] 3 12:10:09 Fatigue 67207213 Active 024 Kennedy Rai MD [address] [place] [address], [address], [facility] 4 12:27:12 Neuropathy 590036036 Active 024 Kennedy Rai MD [address] [place] [address], [address], [facility] 4 12:29:08 Closed fracture of orbit 79652401 Active 024 Kennedy Rai MD [address] [place] [address], [address], [facility] 4 12:51:01 Vaginal discharge 418860438 Active 024 Kennedy Rai MD [address] [place] [address], [address], [facility] 4 12:51:22 Closed fracture of nasal bones 92462657 Active 024 Kennedy Rai MD [address] [place] [phone], [facility] 4 12:52:14 Problem Notes None recorded. Procedures Surgical History Date Name Laterality Status Provider Name and Address Organization Details Recorded Time procedure on face completed Alondra banks [facility] 07/13/2023 18:38:30 Tonsillectomy completed [facility] 07/13/2023 18:38:36 retinotomy completed [facility], LMarioLMarioCMario 07/13/2023 18:38:52 Imaging Results None recorded. Procedure Notes None recorded. Medical Equipment None Reported. Allergies Allergen ID Allergen Name Allergen Category Reaction Reaction Severity Criticality Documentation Date Start Date Code Code System Note Provider Name and Address Organization Details Recorded Time 66833 amitripty line hydrochlo ride medicatio n Not available Not available Not available 09/12/202207990 8 RxNorm Comme nt: Recor ded 07/14 4:32 PM by Erin banks LPN, Offic e Visit ; Promo mu; Jackson reece ce: *; Reaso n: Drug aller gy; ; GINO toure [facility] 3 12:40:29 407 morphine medicatio n vomiting mild low 05/09/2022 7052 RxNorm Alondra [facility], LMarioL.CMario 4 18:37:40 408 amitripty line medicatio n other moderate low 05/09/2022 704 RxNorm LEGS GO NUMB Alondraivan Escobar [facility] L[facility] 4 18:37:34 83853 amoxicill in medicatio n rash Not available low 09/01/2023 723 Rx[facility] 4 12:33:19 Medications Name Sig Start [...] needed for sleep 09/23 completed Recorded 05/01/19 23 10:31AM by Kennedy Rai MD, Office Visit; [...] (BMI) Body weight Body temperature Oxygen saturation Heart rate Systolic And Diastolic Provider Name and Address Organization Details Last Updated DateTime 4 160.02 cm 19 kg/m2 37500.3 8 g 97.6 [degF] 99 % 64 /min 110/80 mm[Hg] TITI SANCHEZ [facility] 4 12:15:56 Date Recorded Body height Body mass index (BMI) Body weight Oxygen saturation Heart rate Respiratory rate Body temperature Systolic And Diastolic Provider Name and Address Organization Details Last Updated DateTime 4 160.02 cm 19 kg/m2 24017.3 8 g 95 % 100 /min 16 /min 98.8 [degF] 106/78 mm[Hg] Alondra Escobar [facility] 4 18:42:37 Date Recorded Body height Respiratory rate Body mass index (BMI) Body weight Body temperature Heart rate Oxygen saturation Systolic And Diastolic Provider Name and Address Organization Details Last Updated DateTime 4 160.02 cm 20 /min 18.3 kg/m2 36146.7 1 g 97.9 [degF] 90 /min 98 % 92/60 mm[Hg] [facility] 4 12:33:02 Date Recorded Body height Body mass index (BMI) Body weight Oxygen saturation Heart rate Body temperature Systolic And Diastolic Provider Name and Address Organization Details Last Updated DateTime 3 160.02 cm 30.8 kg/m2 67117.0 7 g 98 % 93 /min 97.9 [degF] 110/78 mm[Hg] Nicole Claudia [facility] 3 14:41:47 Date Recorded Body height Respiratory rate Body mass index (BMI) Body weight Body temperature Heart rate Oxygen saturation Systolic And Diastolic Provider Name and Address Organization Details Last Updated DateTime 3 160.02 cm 20 /min 18.6 kg/m2 84454.9 g 97.6 [degF] 119 /min 99 % 104/78 mm[Hg] [facility] 3 10:58:03 Social History Question Answer Notes LastModified by Cloud[employer] ion Details LastModified Time Tobacco Smoking Status Current Every Day Smoker [facility] 07/13/2023 18:38:10 What Was The Date Of Your Most Recent Tobacco Screening? 07/13/2023 Information not available 07/13/2023 Sex: Unknown Functional Status Question Answer Note LastModified by Organizat ion Details LastModified Time Do you use any [...] Cancer N Blood Transfusion N Depression N COPD N Lung Disease N Hypothyroidism N Developmental or Behavioral Disorders N Defects or Inherited Disease N Breast Problem N Difficulty Swallowing N Anesthesia Complications N Meniere's disease N Anxiety Disorder Y Muscle, Joint, or Bone Problems N Vision [...] mcg/0.3 mL dose 02/25/2021 completed Alondra toure [facility] 07/13/2023 18:37:02 COVID-19, mRNA, LNP-S, PF, 30 mcg/0.3 mL dose, adriana-sucrose 04/15/2021 completed Alondra toure [facility] 07/13/2023 18:37:02 Influenza, split virus, quadrivalent, PF 12/07/2018 completed Alondra toure [facility] 07/13/2023 18:37:02 TST-PPD intradermal 01/01/2022 completed GINO toure [facility] L[facility]LM[facility] 09/28/2022 10:53:01 Past Encounters Encounter ID Performer Location Encounter Start Date Encounter Closed Date Diagnosis/Indication Diagnosis SNOMED-CT Code Diagnosis ICD10 Code Diagnosis IMO Codes Diagnosis Note [id number] PATRICIA EVANS [facility] ([facility]) [address] [place] [address] 05/09/2022 14:09:43 05/09/2022 15:19:49 Infection of tooth 299974533 K04.7 Nausea 468079416 R11.0 Injection given 39485239 2 Z98.890 [id number] Kennedy Rai MD [facility] ([facility]) [address] [place] [phone] 05/28/2022 16:28:08 06/03/2022 14:33:19 Anxiety 04388056 F41.9 discussed the safety concerns about her medication s especially in the context of alcohol use. She expresses desire to not drink and come off medication s. we will proceed with lowering the dose and refilling the meds. Patient was encouraged to sustain from alcohol use. We will start sertraline and hydroxyzin e to help manage her anxiety safer. F/u in one month [id number] Kennedy Rai MD [facility] ([facility]) [address] [place] [phone] 06/26/2022 15:27:34 06/26/2022 16:29:24 Anxiety 82463809 F41.9 discussed the safety concerns about her medication s especially in the context of alcohol use. She expresses desire to not drink and come off medication s. We will try buspirone on a scheduled basis. The patient intends to seek additional help through [facility]. Insomnia 031432711 G47.0 0 Alcohol dependence 29276 003 F10.20 recommend cessation. Patient intends to seek resources as above. [id number] LAURYN NOE [facility] ([facility]) [address] [place] [phone] 09/11/2022 14:27:51 09/11/2022 16:53:55 [id number] Kennedy Rai MD [facility] ([facility]) [address] [place] [phone] 09/28/2022 10:48:59 09/28/2022 12:48:04 Anxiety 36349085 F41.9 Patient is struggling significan tly with her anxiety. The patient would benefit from daily medication s. Patient did not do well on Zoloft. We will start her on bupropion and continue clonazepam . Alcohol dependence 86788 003 F10.20 recommend cessation. Patient has been establishe d with [facility] and has a social work case manager who was present during the interview today. Patient is receiving therapy and in the process of obtaining further additional help with psychiatry . Discussed the importance of not drinking while taking his medication s and the patient expresses understand ing. Patient is currently not driving [id number] Kennedy Rai MD [facility] ([facility]) [address] [place] [phone] 05/21/2023 12:11:19 05/21/2023 12:54:25 Renewal of prescription 284444222 Z76.0 Alcohol dependence 30629 003 F10.20 Continue with alcohol cessation and mental health providers. Anxiety 77529974 F41.9 Continues to do well on clonazepam . Fatigue 68519709 R53.83 Patient reports that she has been tired and fatigued. And we will obtain regular lab work and include a TSH. Hyperlipid emia screening 691162219 Z13.220 Insomnia 526865855 G47.0 0 Neuropathy 032504277 G62 .9 [id number] PATRICIA CARIAS [facility] ([facility]) [address] [place] [phone] 07/13/2023 18:33:57 07/13/2023 18:54:44 Toothache 17095971 K08.89 Will put patient on a short course of antibiotic as a prophylact ic for her dental cleaning tomorrow. [id number] Kennedy Rai MD [facility] ([facility]) [address] [place] [phone] 09/01/2023 12:26:55 09/01/2023 14:14:08 Vaginal discharge 985901951 N89.8 Based on descriptio n of discharge it could be yeast or possible bacterial vaginosis. Will treat with 1 dose of Diflucan and 2000 mg of metronidaz ole. Was instructed not to drink alcohol with the metronidaz ole. Closed fra cture of orbit 63016898 S02.80XD Reviewed records from the emergency department and discussed this with the patient. The patient is 8 weeks from injury and this is likely healed. Was minimally displaced and did not require any interventi on. The numbness is likely to improve over time. Patient did see ENT. Tuberculos is screening 728196741 Z11.[address] tuberculos is today. Health Concerns Section Related Observation LastModified by Organization Detai ls LastModified Time None Recorded Concern Status LastModified by Organization Details LastModified Time None Recorded Advance Directives Directive None Recorded Payers Insurance Date Sequence Insurance Name Policy Number Policy Lemons Covered Member ID Lemons Member ID Guarantor Name 01/19/2024 [place] [facility] [place] [facility] [place] Yolandasincere Wray [id number] Yolanda Duncan Wray 09/07/2023 3 *SELF PAY* Bruno ssica Duncan Wray 01/19/2024 1 [facility] (MEDICAID HMO) Yolanda Wray [id number] Yolanda Wray 01/19/2024 2 [place] Yolanda Wray [id number] Yolanda Wray 01/19/2024 1 [facility] [place]) [facility] Yolanda Wray [id number] Yolanda Wray Notes Date Note Type Note Provider Name and Address Organization Details Recorded Time 09/11/2022 text/html Patient is here to discuss her medications. LAURYN NOE [address] [place] [address], [phone], [facility] 09/11/2022 16:53:54 09/28/2022 text/html Patient is [...] dates for personal reasons. Kennedy Rai MD [address] [place] [address], [phone], [facility] 09/28/2022 11:46:29 05/21/2023 text/html This is [...] working well for her. Kennedy Rai MD [address] [place] [address], [phone], [facility] 05/23/2023 08:57:04 07/13/2023 text/html ROS as [...] she sees the dentist tomorrow. PATRICIA CARIAS [address] [place] [address], [phone], [facility] 07/13/2023 18:53:20 09/01/2023 text/html This is [...] need it for employment. Kennedy Rai MD [address] [place] [address], [phone], [facility] 09/02/2023 12:46:21 OBGyn Episode No OBEpisode recorded.
[2025-01-08 15:34] LABS: Glucose Urine UA Negative (Normal); Nitrate Urine Negative (Negative); Specific Gravity, Urine 1.017 (1.005-1.030)
[2025-01-08 15:36] LABS: Add Urine Microscopic? YES
[2025-01-08] MEDS: LORazepam 2 mg/mL INJ 1 mL IM (15:41)
--- NOTE | 2025-01-08 15:41 | ED_ITS ---
HPI - General Adult General: Chief complaint: General Medical Stated complaint: needs meds and burning during urination Time Seen by Provider: 01/08/25 15:12 Source: patient Mode of arrival: ambulatory Limitations: no limitations History of Present Illness: Patient is a 50-year-old female with past medical history of previous psychiatric care, alcohol dependence, and anxiety presenting to the emergency department with request of medication refill. She states that she has been out of her Klonopin, she takes it as needed for anxiety and has not been able to get it refilled. Has not been to [facility] [place] or crisis center, and she is difficult to understand as she is tangential with conversation and speaks very softly. She does not endorsing any suicidal ideation or homicidal ideation. She is also reporting urinary symptoms and would like tested urinary tract infection. She states that she lives at the [facility], and indicates to me that she has a president currently but does not tell me what for. MD complaint: med refill Associated symptoms: Deny chest pain, dyspnea, headache(s), nausea, rash, palpitations or vomiting Related Data Previous Rx's ?Medication ?Instructions ?Recorded clonazepam 0.5 mg tablet (Klonopin) 0.5 mg PO BID PRN anxiety #30 tabs 11/30/24 nitrofurantoin 100 mg PO BID 7 days #14 cap s 01/08/25 monohydrate/macrocrystals 100 mg capsule (Macrobid) Allergies Allergy/AdvReac Type Severity Reaction Status Date / Time albuterol Allergy Severe ALGY-Anaphy Verified 08/30/24 03:13 laxis amitriptyline Allergy ADR-Numbnes Verified 08/30/24 03:13 s morphine Allergy ADR-Vomitin Verified 08/30/24 03:13 g Review of Systems General: Reports: 10 or more systems reviewed and unremarkable except in HPI and below Const: Denies: fever(s), chills or fatigue Eyes: Denies: change in vision ENMT: Denies: throat pain, ear or mastoid pain or nasal discharge Card: Denies: chest pain, palpitations, swelling of feet/ankles or lightheadedness Resp: Denies: dyspnea, productive cough or wheezing GI: Denies: abdominal pain, nausea, vomiting, diarrhea or constipation : Reports: difficulty voiding, dysuria and urinary frequency; Denies: flank pain Musc: Denies: neck pain, back pain or joint pain Skin/Breast: Denies: rash Neuro: Denies: headache(s), numbness in extremities or weakness in extremities Psych: Reports: other (present for medication refill); Denies: anxiety, depression, visual hallucinations, auditory hallucinations, tactile hallucinations, suicidal ideation or homicidal ideation PFSH ED PFSH: Medical History Alcohol dependence Insomnia Neuropathy Psychiatric care Anxiety Seizure From benzo and Etoh withdrawal Surgical History Hx of tonsillectomy Family History Other Diabetes mellitus, type 2 Heart disease Social History Smoking and tobacco/nicotine status: current every day tobacco/nicotine user cigarettes Packs smoked per day: 0.5 Years cigarettes smoked: 29 Quit status (tobacco/nicotine): not considering quitting Second hand smoke exposure: No Alcohol intake: current Alcohol intake frequency: 0-2 Drinks per Day Alcohol type: hard liquor Substance/Drug Use: current Substance/Drug use frequency: few times a week Adopted: No Caregiver/support person: No Household members: none Housing: Apartment Marital status: Number of children: 2 Number of grandchildren: 0 Highest education level completed: Associate Degree: Occupational, Technical, Vocational Program Education level details: [employer] service: No Current occupational status: unemployed Pets and animals: Yes Pets & animals: cat(s) and dog(s) Leisure activites: exercise and other Leisure activities details: outdoors Sexually active: No Do you think of yourself as: Straight/Heterosexual Current gender identity: Female Jia/Mosque: Presbyterian Special jia needs: No Agree to transfusion: Yes Female Reproductive History: Para: 2 Physical Exam Const: COMMON NORMALS: no acute distress and patient oriented x3 GENERAL APPEARANCE: cooperative ORIENTATION/CONSCIOUSNESS: Yes awake, Yes oriented to person, Yes oriented to place and Yes oriented to time HENMT: COMMON NORMALS: normocephalic, atraumatic and hearing grossly normal bilaterally HEAD & SCALP: normocephalic and atraumatic Eye: COMMON NORMALS: Equal, round and reactive pupils present, EOMs intact bilaterally and conjunctivae normal CONJUNCTIVA: Yes conjunctivae normal PUPIL: Yes Equal, round and reactive pupils present Neck/C-Spine: COMMON NORMALS: full ROM, supple and no JVD Resp: COMMON NORMALS: normal respiratory effort, No retractions, No use of accessory muscles and clear to auscultation bilaterally AUSCULTATION: clear to auscultation bilaterally Cardio: COMMON NORMALS: no JVD, regular rate, regular rhythm, No clicks present (Cardio), No murmurs present (Cardio) and No rub (Cardio) RATE: regular rate RHYTHM: regular rhythm Extremity: COMMON NORMALS: normal to inspection, full ROM and capillary refill normal Neuro: COMMON NORMALS: patient oriented x3, moves all extremities, no focal motor deficits and no sensory deficits noted SENSORIUM/ORIENTATION: Yes oriented to person, Yes oriented to place and Yes oriented to time Psych: COMMON NORMALS: mental status grossly normal SPEECH: Yes soft THOUGHT PROCESS: Tangential thought process present THOUGHT CONTENT: No Suicidality present, No Homicidality present and No Hallucination(s) present Skin: COMMON NORMALS: no rashes or lesions noted GENERAL SKIN EXAM: no rashes or lesions noted Course Vital Signs: Vital signs: Vital Signs Temperature 97.7 F 01/08/25 14:56 Pulse Rate 113 H 01/08/25 14:56 Respiratory Rate 17 01/08/25 14:56 Blood Pressure 112/73 01/08/25 14:56 Pulse Oximetry 95 01/08/25 14:56 Oxygen Delivery Me thod Room Air 01/08/25 14:56 MDM - General Adult Medical Decision Making Patient presented for refill of her Klonopin, I told her we cannot refill this from the ER but she is to follow-up with [facility] [place] and of the crisis center for evaluation of her mental health. She did not have any SI HI hallucinations or any reason to put in the neuropsychiatric at this time. She is given Ativan for acute anxiety which does help. She had concern of a UTI, urinalysis did show evidence of this and she will be started on Macrobid. Stable for discharge home, she is strongly urged to follow-up with [facility] [place]/crisis center and return with any new or worsening. Lab Data Laboratory Results Urine Color Yellow (Yellow) 01/08/25 15:26 Urine Appearance Turbid (CLEAR) A 01/08/25 15:26 Urine pH 7.0 (5-7) 01/08/25 15:26 Ur Specific [place] 1.017 (1.005-1.030) 01/08/25 15:26 Urine Protein Trace (Negative) A 01/08/25 15:26 Urine Glucose (UA) Negative (Normal) 01/08/25 15: Urine Ketones Negative (Negative) 01/08/25 15: Urine Blood Negative (Negative) 01/08/25 15: Urine Nitrate Negative (Negative) 01/08/25 15: Urine Bilirubin Negative (Negative) 01/08/25 15: Urine Urobilinogen 0.2 mg/dL (Negative) 01/08/25 15: Ur Leukocyte Esterase 3+ (Negative) A 01/08/25 15:26 Urine RBC 0-2 /hpf (0-2) 01/08/25 15:26 Urine WBC 21-50 /hpf (0-5) H 01/08/25 15:26 Ur Squamous Epith Cells 0-5 /hpf (0-5) 01/08/25 15: Amorphous Sediment Not Reportable 01/08/25 15: Urine Bacteria 3+ /hpf (NONE) H 01/08/25 15: Hyaline Casts 4.11 /lpf 01/08/25 15:26 No radiology studies performed this visit Discharge Plan Discharge Patient Disposition: Home Clinical Impression: Anxiety UTI (urinary tract infection) Qualifiers: Urinary tract infection type: acute cystitis Hematuria presence: without hematuria Qualified Code(s): N30.00 - Acute cystitis without hematuria Condition: Stable Prescriptions: New nitrofurantoin monohyd/m-cryst [Macrobid] 100 mg capsule 100 mg PO BID 7 Days Qty: 14 0RF Rx Instructions: must administer with a meal/food No Action clonazepam [Klonopin] 0.5 mg tablet 0.5 mg PO BID PRN (Reason: anxiety) Qty: 30 0RF Discharge Orders: Discharge ED (Routine); Ordered 01/08/25 Ordered By: Sarabjit Garcia Referrals: Lisset Ayers DO [Primary Care Provider, Family Practice] Patient Instructions: Patient Portal & Alexander Instructions Activity Restrictions/Additional Instructions: Please take antibiotics as prescribed. Use the Ativan as needed for acute a nxiety. Please also follow-up with [facility] [place] and the crisis center for further evaluation. If you develop any suicidal thoughts, homicidal thoughts, or hallucinations please return to the ED. Print Language: Portuguese Coding Level of Care Code ED Survey Workers Supervisor for Mary Musa
[2025-01-08 16:00] VITALS: BP 112/79; PULSE 110; O2SAT 98
== END 2025-01-08 16:16 | disposition home or self-care (01) ==
PROVIDERS: Emergency Medicine; Emergency Provider Physician Assistant; PCP Family Medicine
DX: N30.00 Acute cystitis without hematuria (principal)
CPT/HCPCS: 81001; 87077; 87086; 87186; 96372; 99284; J2060; J9999